=== PATIENT | female | born 1990 | race Caucasian/White ===

== ENCOUNTER 2024-12-02 19:00 | Emergency (ER) | payer OTHER, SELFPAY ==
[2024-12-02 19:14] VITALS: BP 153/90; PULSE 83; RESP 16; TEMP 36.9; O2SAT 99
--- NOTE | 2024-12-02 20:32 | ED_ITS ---
HPI - Extremity Problem General Chief complaint: Extremity Problem,Nontraumatic Stated complaint: pain in wrist Source: patient and RN notes reviewed Mode of arrival: ambulatory Limitations: no limitations History of Present Illness HPI Narrative: 34-year-old female presents Express Care complaining of pain to her right wrist. She states she has a history of ganglion cyst and has had them removed previously. Patient states a ganglion cyst has returned and now she has have worsening pain to her right wrist and hand. Patient for some numbness and tingling, patient is able to move her fingers and wrist. Patient cannot get into orthopedist on Saturday. Patient has been taking ibuprofen for pain with some relief. Patient rates her pain a 04/30. Related Data Home Medications Medication Instructions Recorded Confirmed Last Taken Type albuterol sulfate 90 mcg/actuation inhalation 12/02/24 Unknown History aerosol inhaler buspirone 15 mg tablet mg 12/02/24 Unknown History clonazepam 0.5 mg tablet mg 12/02/24 Unknown History dextroamphetamine-amphetamine ER PO 12/02/24 Unknown History 20 mg 24hr capsule,extend release lidocaine 5 % topical patch patch 12/02/24 Unknown History sertraline 100 mg tablet mg 12/02/24 Unknown History trazodone 100 mg tablet mg 12/02/24 Unknown History Allergies Allergy/AdvReac Type Severity Reaction Status Date / Time Sulfa (Sulfonamide Allergy Intermediate Rash Verified 12/02/24 19:29 Antibiotics) tramadol Allergy Intermediate Rash Verified 12/02/24 19:29 Review of Systems Review of Systems: CONSTITUTIONAL: Denies fever, chills, or sweats. EYES: Denies visual changes, redness, or discharge. ENT: Denies rhinorrhea, congestion, sore throat, or otalgia. CARDIOVASCULAR: Denies chest pain, palpitations, or edema. RESPIRATORY: Denies cough or dyspnea. GASTROINTESTINAL: Denies abdominal pain, nausea, vomiting, or diarrhea. GENITOURINARY: Denies dysuria or hematuria. SKIN: Denies rash, wound, or itching. MUSCULOSKELETAL: Denies back pain, joint pain, or myalgia. Positive for wrist pain and swelling NEUROLOGIC: Denies headache, numbness, or weakness. PSYCHIATRIC: Denies anxiety or depression. All other systems reviewed are negative, except as documented in HPI. [facility] Comments At the time of my signature, I reviewed and agree with the nursing past medical, surgical, social, and family history. There is no relevant family history pertinent to the patient complaint. Exam Narrative: GENERAL: This is a well-nourished, well-developed adult, in no apparent distress. They are non ill-appearing, nontoxic appearing. HEAD: normocephalic, atraumatic. EYES: Sclera clear/white. Vision is grossly intact. Conjunctiva normal. Extraocular movement intact. EARS: External ears normal Hearing grossly intact. NOSE: External nose normal THROAT: Mucous membranes moist NECK: Neck supple CARDIOVASCULAR: Regular rate and rhythm RESPIRATORY: Respiratory rate normal, respiratory effort nonlabored, no respiratory distress NEURO: awake, alert, and oriented to person, place and time. There were no obvious focal neurologic abnormalities. EXTREMITIES: Right wrist: No obvious deformity, injury, bruising, redness. Smooth and rubbery lesion to the lateral wrist located over the distal radius. Lesion measures approximately 1 cm by 1 cm. Lesion transilluminate and flesh- colored. Patient is able to pronate and supinate with discomfort. Patient is able to flex and extend her right wrist however there is intense pain. Patient is able to make a stop sign, thumbs-up sign, and okay sign, and a fist. No bony tenderness. Capillary refill less than 3 seconds. Radial pulse 2 +palpable. Numbness and tingling present. Patient able to feel me touch her feet tips of her fingers. Patient is able to wiggle her fingers. Neurovascular status intact distal to lesion. Radial nerve and ulnar nerve distribution intact. BACK: Nontender without deformity. Course Course Emergency Course: Portions of this record may have been created with voice recognition software Level of Care: Express Care Visit Vital Signs Vital signs: Vital Signs Temperature 98.4 F 12/02/24 19:14 Pulse Rate 83 12/02/24 19:14 Respiratory Rate 16 12/02/24 19:14 Blood Pressure 153/90 H 12/02/24 19:14 Pulse Oximetry 99 12/02/24 19:14 Temperature 98.4 F 12/02/24 19:14 Pulse Rate 83 12/02/24 19:14 Respiratory Rate 16 12/02/24 19:14 Blood Pressure 153/90 H 12/02/24 19:14 Pulse Oximetry 99 12/02/24 19:14 Reviewed MDM - Extremity (Nontraumatic) MDM Narrative Medical decision making narrative: Likely patient is having complications from her ganglion cyst. Patient has a follow-up with her ortho on Saturday to further evaluate and treat her. Patient neurovascular status is intact distal to the ganglion cyst. Will give patient course of prednisone, muscle relaxers to help with pain. Discussed physical exam findings. Advised supportive measures and signs/symptoms to go to the ER. Pt is appropriate for outpt treatment and f/u. Differential Diagnosis Differential diagnosis: Likely other (Ganglion cyst, lipoma, tumor) Critical Care Time Critical Care Time Critical Care Time: No Discharge Plan Discharge Clinical Impression: Ganglion cyst of dorsum of right wrist Patient Disposition: Home Condition: Stable Instructions: Ganglion Cyst (ED) Additional Instructions: Take the steroids as directed. He may take Tylenol ibuprofen as needed for p ain. You may apply ice to the affected area. Take Robaxin as directed for any muscle spasms. Drive or operate machinery while on muscle relaxers as this may make you drowsy. If your pain gets worse, unable to use your right hand, or any other concerning symptoms please go to the ER immediately. Follow-up with the orthopedist this following Saturday as scheduled. Patient Language: Armenian Prescriptions: New prednisone 20 mg tablet 40 mg PO DAILY 5 Days Qty: 10 0RF methocarbamol 750 mg tablet 750 mg PO TID 3 Days Qty: 9 0RF No Action clonazepam 0.5 mg tablet sertraline 100 mg tablet dextroamphetamine-amphetamine 20 mg capsule,extended release 24hr PO trazodone 100 mg tablet lidocaine 5 % adhesive patch,medicated albuterol sulfate 90 mcg/actuation HFA aerosol inhaler INHALATION buspirone 15 mg tablet Follow-up/Referrals: Jessie,MD Brandt [Primary Care Provider] - Stand Alone Forms: Work/School Release IP Time of Disposition: 19:34
== END 2024-12-02 19:44 | disposition home or self-care (01) ==
PROVIDERS: PCP Family Medicine
DX: M67.431 Ganglion, right wrist (principal); M47.812 Spondylosis without myelopathy or radiculopathy, cervical region; M47.814 Spondylosis without myelopathy or radiculopathy, thoracic region
CPT/HCPCS: 99203; G0463

== ENCOUNTER 2025-03-02 18:43 | Emergency (ER) | payer SELFPAY ==
[2025-03-02 18:50] VITALS: BP 142/72; PULSE 73; RESP 20; TEMP 36.9; O2SAT 100
--- NOTE | 2025-03-02 19:21 | ED.GENADULT ---
HPI - General Adult General Chief complaint: Dental/Oral Stated complaint: tooth pain Source: patient Mode of arrival: ambulatory Limitations: no limitations History of Present Illness HPI narrative: Patient presents for evaluation of left lower dental pain. Symptom onset last night. She gets pain is throbbing, 7/10 in severity. She tried taking Tylenol and ibuprofen for symptoms. She does not smoke. She states she went to the ER 3 weeks ago for similar symptoms and was given antibiotics. Her symptoms improved. She has an appointment with her dentist tomorrow. Related Data Home Medications ?Medication ?Instructions ?Recorded ?Confirmed ?Last Taken ?Type albuterol sulfate 90 mcg/actuation inhalation 12/02/24 Unknown History aerosol inhaler buspirone 15 mg tablet mg 12/02/24 Unknown History clonazepam 0.5 mg tablet mg 12/02/24 Unknown History dextroamphetamine-amphetamine ER PO 12/02/24 Unknown History 20 mg 24hr capsule,extend release sertraline 100 mg tablet mg 12/02/24 Unknown History trazodone 100 mg tablet mg 12/02/24 Unknown History Allergies Allergy/AdvReac Type Severity Reaction Status Date / Time Sulfa (Sulfonamide Allergy Intermediate Rash Verified 03/02/25 19:00 Antibiotics) tramadol Allergy Intermediate Rash Verified 03/02/25 19:00 Review of Systems Review of Systems: CONSTITUTIONAL: Denies fever, chills, or sweats. EYES: Denies visual changes, redness, or discharge. ENT: Reports left lower dental pain. Denies rhinorrhea, congestion, sore throat, or otalgia. CARDIOVASCULAR: Denies chest pain, palpitations, or edema. RESPIRATORY: Denies cough or dyspnea. GASTROINTESTINAL: Denies abdominal pain, nausea, vomiting, or diarrhea. GENITOURINARY: Denies dysuria or hematuria. SKIN: Denies rash or itching. MUSCULOSKELETAL: Denies back pain, joint pain, or myalgia. NEUROLOGIC: Denies headache, numbness, dizziness, or weakness. PSYCHIATRIC: Denies anxiety or depression. [facility], [facility] Past Medical History Medical History Depression Anxiety Surgical History Surgical History No pertinent past surgical history Family History Family History Mother Family history non-contributory Social History Social History Living arrangements: with family Gender identity (if verbalized by the patient): Female Spiritual care concerns: No Exam Narrative: GENERAL: Well-appearing, well-nourished, and in no acute distress. HEAD: Normocephalic, atraumatic. EYES: PERRLA and EOMI. ENT: Nares clear, no rhinorrhea or epistaxis. Mucous membranes moist. Oropharynx without tonsillar hypertrophy exudate or other lesions. There is erosion of the gumline surrounding tooth #18. There is no visible or palpable abscess. Bilateral TMs pearly moss nonbulging NECK: Supple. No adenopathy or masses. No carotid bruits or JVD CHEST: Clear to auscultation. No respiratory distress. No wheezes rales or rhonchi HEART: Regular rate and rhythm. No murmur heard. Normal peripheral pulses. ABDOMEN: Soft, nontender, nondistended, normal active bowel sounds. EXTREMITIES: Normal range of motion. No edema. SKIN: Warm, dry, no rash. NEURO: No focal deficits. Alert and oriented x3. PSYCH: Normal mood and affect. Course Course Emergency Course: This is a 34-year-old female who presented for evaluation of left lower dental pain. She will be discharged with meloxicam and penicillin. She should keep her appointment with her dentist tomorrow. She should go to the emergency department for worsening symptoms. Patient in agreement with plan of care. Level of Care: Express Care Visit Vital Signs Vital signs: Vital Signs Temperature 36.9 C 03/02/25 18:50 Pulse Rate 73 03/02/25 18:50 Respiratory Rate 20 03/02/25 18:50 Blood Pressure 142/72 H 03/02/25 18:50 Pulse Oximetry 100 03/02/25 18:50 Oxygen Delivery Room Air 03/02/25 18:50 Temperature 36.9 C 03/02/25 18:50 Pulse Rate 73 03/02/25 18:50 Respiratory Rate 20 03/02/25 18:50 Blood Pressure 142/72 H 03/02/25 18:50 Pulse Oximetry 100 03/02/25 18:50 Oxygen Delivery Room Air 03/02/25 18:50 Medical Decision Making Vital Signs Vital Signs: Vital Signs Temperature 36.9 C 03/02/25 18:50 Pulse Rate 73 03/02/25 18:50 Respiratory Rate 20 03/02/25 18:50 Blood Pressure 142/72 H 03/02/25 18:50 Pulse Oximetry 100 03/02/25 18:50 Oxygen Delivery Room Air 03/02/25 18:50 Temperature 36.9 C 03/02/25 18:50 Pulse Rate 73 03/02/25 18:50 Respiratory Rate 20 03/02/25 18:50 Blood Pressure 142/72 H 03/02/25 18:50 Pulse Oximetry 100 03/02/25 18:50 Oxygen Delivery Room Air 03/02/25 18:50 Discharge Plan Discharge Clinical Impression: Pain, dental Patient Disposition: Home Condition: Stable Instructions: Antibiotic Form, Toothache (ED) Additional Instructions: PLEASE KEEP APPOINTMENT WITH DENTIST TOMORROW DO NOT TAKE OTHER NSAIDS WHEN TAKING MELOXICAM Patient Language: Northern Irish Prescriptions: New penicillin V potassium 500 mg tablet 500 mg PO Q6H 10 Days Qty: 40 0RF meloxicam 15 mg tablet 15 mg PO DAILY PRN (Reason: pain) Qty: 10 0RF No Action clonazepam 0.5 mg tablet sertraline 100 mg tablet dextroamphetamine-amphetamine 20 mg capsule,extended release 24hr PO trazodone 100 mg tablet albuterol sulfate 90 mcg/actuation HFA aerosol inhaler INHALATION buspirone 15 mg tablet Follow-up/Referrals: Jessie,MD Brandt [Primary Care Provider] - Time of Disposition: 19:21
== END 2025-03-02 19:25 | disposition home or self-care (01) ==
PROVIDERS: Emergency Provider Nurse Practitioner; PCP Family Medicine
DX: K08.89 Other specified disorders of teeth and supporting structures (principal)
CPT/HCPCS: 99213; G0463

== ENCOUNTER 2025-03-03 10:12 | Emergency (ER) | payer SELFPAY ==
[2025-03-03 10:19] VITALS: BP 132/63; PULSE 71; RESP 20; TEMP 36.7; O2SAT 100
--- NOTE | 2025-03-03 10:21 | ED.ABDPAIN ---
HPI - Abdominal Pain General Chief Complaint: Abdominal Pain Stated Complaint: abdomen pain/vomiting Related Data Home Medications ?Medication ?Instructions ?Recorded ?Confirmed ?Last Taken ?Type albuterol sulfate 90 mcg/actuation inhalation 12/02/24 Unknown History aerosol inhaler buspirone 15 mg tablet mg 12/02/24 Unknown History clonazepam 0.5 mg tablet mg 12/02/24 Unknown History dextroamphetamine-amphetamine ER PO 12/02/24 Unknown History 20 mg 24hr capsule,extend release sertraline 100 mg tablet mg 12/02/24 Unknown History trazodone 100 mg tablet mg 12/02/24 Unknown History Allergies Allergy/AdvReac Type Severity Reaction Status Date / Time Sulfa (Sulfonamide Allergy Intermediate Rash Verified 03/02/25 19:00 Antibiotics) tramadol Allergy Intermediate Rash Verified 03/02/25 19:00 PMFSH Past Medical History Medical History Depression Anxiety Surgical History Surgical History No pertinent past surgical history Family History Family History Mother Family history non-contributory Social History Social History Living arrangements: with family Gender identity (if verbalized by the patient): Female Spiritual care concerns: No Course Vital Signs Vital signs: Vital Signs Temperature 98.0 F 03/03/25 10:19 Pulse Rate 71 03/03/25 10:19 Respiratory Rate 20 03/03/25 10:19 Blood Pressure 132/63 03/03/25 10:19 Pulse Oximetry 100 03/03/25 10:19 Oxygen Delivery Room Air 03/03/25 10:19 Temperature 98.0 F 03/03/25 10:19 Pulse Rate 71 03/03/25 10:19 Respiratory Rate 20 03/03/25 10:19 Blood Pressure 132/63 03/03/25 10:19 Pulse Oximetry 100 03/03/25 10:19 Oxygen Delivery Room Air 03/03/25 10:19 Discharge Plan Discharge Patient Language: Turkish Prescriptions: No Action clonazepam 0.5 mg tablet sertraline 100 mg tablet dextroamphetamine-amphetamine 20 mg capsule,extended release 24hr PO trazodone 100 mg tablet albuterol sulfate 90 mcg/actuation HFA aerosol inhaler INHALATION buspirone 15 mg tablet penicillin V potassium 500 mg tablet 500 mg PO Q6H 10 Days Qty: 40 0RF meloxicam 15 mg tablet 15 mg PO DAILY PRN (Reason: pain) Qty: 10 0RF Follow-up/Referrals: Jessie,MD Brandt [Primary Care Provider] -
--- NOTE | 2025-03-03 10:27 | ED_ITS ---
HPI - General Adult General Chief complaint: Abdominal Pain Stated complaint: abdomen pain/vomiting Time Seen by Provider: 03/03/25 10:30 Source: patient and RN notes reviewed Mode of arrival: ambulatory Limitations: no limitations History of Present Illness HPI narrative: 34-year-old female presents concern for nausea and vomiting. She reports in the middle of the night she had an episode of vomiting, abdominal pain and diarrhea. Reports she had another episode of vomiting and diarrhea this morning. She reports abdominal cramping. She was seen yesterday for a dental infection and prescribed penicillin and meloxicam, she took 1 dose of each of those last night before bed. She has not taken any additional medications. She took a course of amoxicillin 3 weeks ago for the same dental infection. She does not have a history of allergy to penicillin. She denies rash, itching, fever. She reports general malaise. She reports chills. Related Data Home Medications ?Medication ?Instructions ?Recorded ?Confirmed ?Last Taken ?Type albuterol sulfate 90 mcg/actuation inhalation 12/02/24 Unknown History aerosol inhaler buspirone 15 mg tablet mg 12/02/24 Unknown History clonazepam 0.5 mg tablet mg 12/02/24 Unknown History dextroamphetamine-amphetamine ER PO 12/02/24 Unknown History 20 mg 24hr capsule,extend release sertraline 100 mg tablet mg 12/02/24 Unknown History trazodone 100 mg tablet mg 12/02/24 Unknown History Allergies Allergy/AdvReac Type Severity Reaction Status Date / Time Sulfa (Sulfonamide Allergy Intermediate Rash Verified 03/03/25 10:23 Antibiotics) tramadol Allergy Intermediate Rash Verified 03/03/25 10:23 Review of Systems Review of Systems: CONSTITUTIONAL: Reports malaise, chills, sweats. Denies fever. ENT: Denies rhinorrhea, congestion, sinus pain, otalgia or sore throat. Reports dental pain CARDIOVASCULAR: Denies chest pain, palpitations, or edema. RESPIRATORY: Denies cough or dyspnea. GASTROINTESTINAL: Denies abdominal pain. Reports abdominal cramping, nausea, vomiting, diarrhea. Denies bloody, or mucous stools. GENITOURINARY: Denies dysuria or hematuria. MUSCULOSKELETAL: Denies myalgia. NEUROLOGIC: Denies headache. All systems reviewed & are unremarkable except as noted in HPI and below PMFSH Past Medical History Medical History Depression Anxiety Surgical History Surgical History No pertinent past surgical history Family History Family History Mother Family history non-contributory Social History Social History Living arrangements: with family Gender identity (if verbalized by the patient): Female Spiritual care concerns: No Comments At time of signature, agree with nursing past medical, surgical, social and family history. There is no relevant family history pertinent to the presenting complaint Exam Narrative: GENERAL: Well-appearing, well-nourished, and in no acute distress. HEAD: Normocephalic, atraumatic. EYES: PERRLA, sclera clear, and EOMI. No nystagmus. ENT: Nares clear. Mucous membranes moist. NECK: Supple. CHEST: No respiratory distress. Speaks in full sentences. HEART: Regular rate and rhythm. ABDOMEN: Soft, nontender, nondistended, normal active bowel sounds, no palpable masses. EXTREMITIES: Normal range of motion. No edema. SKIN: Warm, dry, no visible rash. NEURO: Alert and oriented x3. PSYCH: Normal mood and affect Course Course Emergency Course: Patient is aware of diagnosis, understands and agrees to treatment plan. Anticipatory guidance given. Patient agrees to follow-up as directed and is aware of reasons to seek care at the emergency department. Portions of this record may have been created with voice recognition software Level of Care: Express Care Visit Vital Signs Vital signs: Vital Signs Temperature 98.0 F 03/03/25 10:19 Pulse Rate 71 03/03/25 10:19 Respiratory Rate 20 03/03/25 10:19 Blood Pressure 132/63 03/03/25 10:19 Pulse Oximetry 100 03/03/25 10:19 Oxygen Delivery Room Air 03/03/25 10:19 Temperature 98.0 F 03/03/25 10:19 Pulse Rate 71 03/03/25 10:19 Respiratory Rate 20 03/03/25 10:19 Blood Pressure 132/63 03/03/25 10:19 Pulse Oximetry 100 03/03/25 10:19 Oxygen Delivery Room Air 03/03/25 10:19 Reviewed. Medical Decision Making MDM Narrative Medical decision making narrative: I evaluated [place] [facility] the [facility] care. History is obtained from patient who is an independent historian and physical exam was performed.? Available [facility] records were reviewed. ? Exam findings and relevant testing show no acute concerns or changes; patient is non-toxic appearing and is in no distress. ? Differential diagnosis and treatment plan were discussed with the patient. Patient agrees with discussion and after shared medical decision making agrees with plan of care. All questions were answered to the patient's satisfaction. Consider allergic reaction to medication, viral illness, food-borne illness. I will change patient's antibiotic, but I think likely this is viral or food-borne illness given his systemic symptoms. Patient was advised to follow-up with her primary doctor and dentist. Patient is appropriate for outpatient treatment and follow-up. Vital Signs Vital Signs: Vital Signs Temperature 98.0 F 03/03/25 10:19 Pulse Rate 71 03/03/25 10:19 Respiratory Rate 20 03/03/25 10:19 Blood Pressure 132/63 03/03/25 10:19 Pulse Oximetry 100 03/03/25 10:19 Oxygen Delivery Room Air 03/03/25 10:19 Temperature 98.0 F 03/03/25 10:19 Pulse Rate 71 03/03/25 10:19 Respiratory Rate 20 03/03/25 10:19 Blood Pressure 132/63 03/03/25 10:19 Pulse Oximetry 100 03/03/25 10:19 Oxygen Delivery Room Air 03/03/25 10:19 Critical Care Time Critical Care Time Critical Care Time: No Discharge Plan Discharge Clinical Impression: Nausea and vomiting Patient Disposition: Home Condition: Stable Instructions: Antibiotic Form, Acute Nausea and Vomiting (ED) Additional Instructions: Stop Penicillin and start clindamycin Take Zofran as directed for nausea vomiting Stay hydrated. Take small sips of fluid containing electrolytes frequently. You should go to the hospital if you experience return of persistent nausea and vomiting that does not resolve and does not allow you to tolerate any food or fluids, persistent fevers for greater than 2-3 more days, increasing abdominal pain that persists despite medications, persistent diarrhea, dizziness, syncope (fainting), or for any other concerns. Patient Language: Welsh Prescriptions: New clindamycin HCl 300 mg capsule 300 mg PO Q8H 7 Days Qty: 21 0RF ondansetron 4 mg tablet,disintegrating 4 mg PO Q8H PRN (Reason: nausea and vomiting) Qty: 10 0RF Discontinued penicillin V potassium 500 mg tablet 500 mg PO Q6H 10 Days Qty: 40 0RF No Action clonazepam 0.5 mg tablet sertraline 100 mg tablet dextroamphetamine-amphetamine 20 mg capsule,extended release 24hr PO trazodone 100 mg tablet albuterol sulfate 90 mcg/actuation HFA aerosol inhaler INHALATION buspirone 15 mg tablet meloxicam 15 mg tablet 15 mg PO DAILY PRN (Reason: pain) Qty: 10 0RF Follow-up/Referrals: Jessie,MD Brandt [Primary Care Provider] - Stand Alone Forms: Work/School Release IP Time of Disposition: 10:39
[2025-03-03] MEDS: ONDANSETRON HCL ODT 4 MG TABLET PO (10:45)
== END 2025-03-03 10:53 | disposition home or self-care (01) ==
PROVIDERS: Emergency Provider Nurse Practitioner; PCP Family Medicine
DX: R11.2 Nausea with vomiting, unspecified (principal); F41.9 Anxiety disorder, unspecified; F32.A Depression, unspecified
CPT/HCPCS: 99213; A9270; G0463

== ENCOUNTER 2025-03-25 20:00 | Emergency (ER) | payer OTHER, SELFPAY ==
--- OUTSIDE RECORDS SUMMARY | 2025-03-24 07:15 | XMS_ITS | Encounter Summary ---
Author Organization [facility] Healthcare Address [address] [place] [address] Care Team Providers Care Employment Director Name Role Phone Brandt Roman MD Primary Care Provider [phone] Praful Machado MD Unavailable [phone] Reason for Visit * Reason Comments Pain Encounter Details Date Type Department Care Team (Late st Contact Info) Description 03/24/2025 7:15 AM CDT Office Visit [facility] Medical Group Hand Surgery [address] [place] [address] [address] [place] [address] Quentin Neumann MD [address] [place] [address] [phone] Ganglion cyst of volar aspect of right wrist (Primary Dx) Social History Tobacco Use Types Packs/Day Years Used Date Smoking Tobacco: Former Cigarettes 1 15 0 07/22/2002 - 2017 Passive Smoke Exposure: Past Smokeless Tobacco: Never AUDIT-C Answer Date Recorded Q1: How often do you have a drink containing alc ohol? Monthly or less 06/17/2024 Q2: How many drinks containi ng alcohol do you have on a typical day when you are drinking? 1 or 2 06/17/2024 Q3: How often do you have si x or more drinks on one occasion? Less than monthly 06/17/2024 PHQ-2 Answer Date Recorded PHQ-2 Total Score (If total score is 3 or more points, staff should administer the PHQ-9) 6 10/01/2024 Hunger Vital Sign Answer Date Recorded Within the past 12 months, y ou worried that your food would run out before you got the money to buy more. Never true 06/02/20 24 Within the past 12 months, t he food you bought just didn't last and you didn't have money to get more. Never true 06/02/2024 PHQ-9 Answer Date Recorded PHQ-9 Total Score 21 10/01/2024 Personal Safety Answer Date Recorded Have you ever been in or are you currently in a harmful physical or emotional relationship or is someone making you feel afraid or unsafe? 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 This patient has verbally consented to recording this visit in order to utilize AI technology in generating this note. Patient ID: Jami Parker is a 34 y.o. female. Visit Date: 03/24/2025 Referring Provider: Brandt Roman MD Chief Complaint: Seen in consultation from Brandt Roman MD right wrist pain status post right volar wrist mass excision more than 2 years ago HPI: History of Present Illness Jami Parker is a 34 year old female who presents with a recurrent mass on her right wrist. The mass on her right wrist initially formed about a year after a previous surgery to remove a similar mass. It became significantly larger after playing basketball, leading to severe pain and numbness in her fingers. She visited the emergency room on March 02, 2025, after the mass ruptured, causing a large area of bruising, which has since resolved. Currently, she experiences no pain unless shemoves her wrist extensively after work. 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 She compensates by using her left arm more frequently, resulting in fatigue. She is concerned about her ability to perform work duties due to her employer's caution regarding lifting restrictions. Past Medical History: Diagnosis Date Anxiety Asthma Brain concussion 11/16/2004 Depression Hepatitis A Menstrual problem Neck pain 10/15/2023 PTSD (post-traumatic stress disorder) Seizures (HCC) last seizure 2019 Past Surgical History: Procedure Laterality Date SECTION COSMETIC SURGERY 10/04/2021 DENTAL SURGERY WRIST SURGERY Right 10/18/2022 rt volar wrist mass exc., radiocarpal ligament repair Allergies Allergen Reactions Benzonatate Fatigue, Headache, Joint pain, Muscle pain, Stomach upset and Sweating Sulfamethoxazole-Trimethoprim Stomach upset and Other (See comments) Tramadol Headache Physical Exam: Her gait is within normal limits. Her mood and affect are appropriate. She is well nourished. She is alert and oriented to time and place. Physical Exam MUSCULOSKELETAL: Previous incision at volar radial aspect of right wrist healed, no signs of infection. Right wrist normal range of motion, motor strength, and stability. There is minimal swelling ather right wrist today NEUROLOGICAL: Normal perfusion to right hand, light touch grossly intact. Xray / Imaging: Results RADIOLOGY Right wrist MRI: Mass formation DIAGNOSTIC Right wrist examination: Healed incision, no signs of infection, normal range of motion, motor strength, stability, and perfusion, light touch grossly intact 1. Ganglion cyst of volar aspect of right wrist PLAN: Assessment & Plan Recurrent right wrist ganglion cyst, post-rupture Recurrent ganglion cyst at the right wrist, post-rupture. The cyst ruptured during a basketball game, causing severe pain and numbness in the fingers. Swelling and bruising have resolved, with no current pain. A slight mass formation measuring 3x3 mm is present adjacent to the previous incision. The cyst may refill as the fluid has dispersed but the cyst wall remains. Previous incision is healed with no signs of infection. Normal range of motion, motor strength, and stability in the right wrist. Normal perfusion and intact light touch in the right hand. - Prescribe Medrol Dosepak for five days to address residual discomfort. - Provide a work note releasing her to full duty immediately. - Provide a better wrist brace to replace the worn-out one. - Advise to return if the cyst refills or symptoms recur. All questions were answered Procedures documented in this encounter Plan of Treatment Not on file documented as of this encounter Goals Goal Patient Goal Type Associated Problems Recent Progress Patient-Stated? 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 Minimize further functional decline 2. Maximize quality of life 3. Control pain Strategies: - Activity/exercise program recommendation - Conservative stepwise pain medicine strategy with multi-disciplinary approach - Recommend healthy lifestyle strategies and compensatory methods as needed documented as of this encounter Visit Diagnoses Diagnosis Ganglion cyst of volar aspect of right wrist- Primary documented in this encounter Care Teams Employment Director Relationship Specialty Start Date End Date Brandt Roman MD PCP - General Family Medicine 05/23/22 Praful Machado MD Consulting Physician Obstetrics and Gynecology 08/20/22 documented as of this encounter
--- OUTSIDE RECORDS SUMMARY | 2025-03-24 07:15 | XMS_ITS | Encounter Summary ---
Author Organization [facility] Healthcare Address [address] [place] [address] Care Team Providers Care Mail Truck Driver Name Role Phone Brandt Roman MD Primary Care Provider Praful Machado MD Unavailable [phone] Reason for Visit * Reason Comments Pain Encounter Details Date Type Department Care Team (Late st Contact Info) Description 03/24/2025 7:15 AM CDT Office Visit [facility] Medical Group Hand Surgery [address] [place] [address] [address] [place] [address] Quentin Neumann MD [address] [place] [address] [phone] Ganglion cyst of volar aspect of right [...] on file 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
--- OUTSIDE RECORDS SUMMARY | 2025-03-25 20:02 | XMS_ITS | Encounter Summary ---
Author Organization [facility] Healthcare Address [address] [place] [address] Care Team Providers Care Energy Conservation Engineer Name Role Phone Brandt Roman MD Primary Care Provider [phone] Praful Machado MD Unavailable [phone] Encounter Details Date Type Department Care Team (Late st Contact Info) Description 04/17/2024 Telephone [facility] Medical Group Family Medicine at [address] [place] [address] Brandt Roman MD [address] [place] [address] [address] [place] [address] Social History Tobacco Use Types Packs/Day Years Used Date Smoking Tobacco: Former Cigarettes 2017 Passive Smoke Exposure: Past Smokeless Tobacco: Never AUDIT-C Answer Date Recorded Q1: How often do you have a drink containing alcohol? Never 03/11/2024 Q2: How many drinks containi ng alcohol do you have on a typical day when you are drinking? Patient does not drink Q3: How often do you have si x or more drinks on one occasion? Never 03/11/2024 PHQ-2 Answer Date Recorded PHQ-2 Total Score (If total score is 3 or more points, staff should administer the PHQ-9) 0 08/09/2023 Hunger Vital Sign Answer Date Recorded Within the past 12 months, y ou worried that your food would run out before you got the money to buy more. Never true 01/07/20 24 Within the past 12 months, t he food you bought just didn't last and you didn't have money to get more. Never true 01/07/2024 Personal Safety Answer Date Recorded Have you ever been in or are you currently in a harmful physical or emotional relationship or is someone making you feel afraid or unsafe? 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 Author CCM Chronic Pain Care Plan Chronic Care Management No change(07/08 10:34 AM RADIO INSTALLER AUTOMOBILE) No Arabella Ferrera, [place] Note: Problem: Chronic Pain Goals: 1. Minimize further functional decline 2. Maximize quality of life 3. Control pain Strategies: - Activity/exercise program recommendation - Conservative stepwise pain medicine strategy with multi-disciplinary approach - Recommend healthy lifestyle strategies and compensatory methods as needed documented as of this encounter Visit Diagnoses Not on filedocumented in this encounter Care Teams Energy Conservation Engineer Relationship Specialty Start Date End Date Brandt Roman MD PCP - General Family Medicine 05/23/22 Praful Machado MD Consulting Physician Obstetrics and Gynecology 08/20/22 documented as of this encounter
--- OUTSIDE RECORDS SUMMARY | 2025-03-25 20:02 | XMS_ITS | Encounter Summary ---
Author Organization [facility] Healthcare Address [address] [place] [address] Care Team Providers Care Calender Tender Name Role Phone Brandt Romna MD Primary Care Provider Praful Machado MD Unavailable [phone] Encounter Details Date Type Department Care Team (Late st Contact Info) Description 12/31/2023 Telephone [facility] Center at the [facility] Advanced Medicine [address] [facility] [address] [place] [phone] Nima Gan, [address] [facility] [address] [place] [address] Social History Tobacco Use Types Packs/Day Years Used Date Smoking Tobacco: Former Cigarettes 1 2017 Passive Smoke Exposure: Past Smokeless Tobacco: Never AUDIT-C Answer Date Recorded Q1: How often do you have a drink containing alcohol? Never 12/25/2023 Q2: How many drinks containi ng alcohol do you have on a typical day when you are drinking? Patient does not drink Q3: How often do you have si x or more drinks on one occasion? Never 12/25/2023 PHQ-2 Answer Date Recorded PHQ-2 Total Score (If total score is 3 or more points, staff should administer the PHQ-9) 0 08/09/2023 Personal Safety Answer Date Recorded Have you ever been in or are you currently in a harmful physical or emotional relationship or is someone making you feel afraid or unsafe? 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 Gender Identity Female 05/06/2024 6:07 PM CDT Sexual Orientation Straight 05/06/2024 6: 07 PM CDT documented as of this encounter Plan of Treatment Not on file documented as of this encounter Visit Diagnoses Not on filedocumented in this encounter Additional Health Concerns Infection Onset Date Last Indicated Resolved Time COVID: Suspected 03/12/2024 03/12/2024 03/12/2024 8:47 AM CDT documented as of this encounter Care Teams Calender Tender Relationship Specialty Start Date End Date Brandt Roman MD PCP - General Family Medicine 05/23/22 Praful Machado MD Consulting Physician Obstetrics and Gynecology 08/20/22 documented as of this encounter
--- OUTSIDE RECORDS SUMMARY | 2025-03-25 20:02 | XMS_ITS | Clinical Summary ---
Author Organization [facility] Address [address] [place] [address] Care Team Providers Care Tobacco Prizer Name Role Phone Brandt Roman MD Primary Care Provider [phone] Praful Machado MD Unavailable [phone] Allergies Active Allergy Reactions Criticality Noted Date Comments Benzonatate Fatigue,Headache,Dinah nt pain,Muscle pain,Stomach upset,Sweating Medium 09/07/2023 Sulfamethoxazole-Trimethopri m Stomach upset,Other (See comments) Medium 05/18/2020 Tramadol Headache Medium 09/06/2023 Medications multivitamin capsule Take 1 capsule by mouth daily 90 capsule 3 10/30/19 23 Active naloxone (NARCAN) 4 mg/actuation spray,non-aerosol Administer 1 spray into affected nostril(s) as needed for opioid reversal or respiratory depression Call 911. Administer a single spray in one nostril. Repeat every 3 minutes as needed if no or minimal response. 2 each 05/09/20 24 Active traZODone (DESYREL) 100 mg tabletIndications :PTSD (post-traumatic stress disorder) Take 2 tablets (200 mg total) by mouth nightly 180 tablet 1 10/06/19 25 Active sertraline (ZOLOFT) 100 mg tabletIndications :Generalized anxiety disorder Take 2 tablets (200 mg total) by mouth daily 180 tablet 1 10/15/19 25 Active busPIRone (BUSPAR) 15 mg tabletIndications :Generalized anxiety disorder TAKE 1 TABLET BY MOUTH TWICE A DAY 180 tablet 1 12/18/19 25 Active baclofen (LIORESAL) 10 mg tabletIndications :Cervical neck pain with evidence of disc disease Take 0.5 tablets (5 mg total) by mouth 3 (three) times a day 45 tablet 2 01/19/20 25 025 Active lidocaine (LIDODERM) 5 %Indications:Pain Place 1 patch on the skin daily for 12 hours Use patch for 12 hours on, 12 hours off. Discard after each use 7 patch 02/23/20 25 Active albuterol HFA (Ventolin HFA) 90 mcg/actuation inhaler Inhale 2 puffs every 6 (six) hours as needed for wheezing 1 each 3 03/01/20 25 025 Active ketorolac (TORADOL) 10 mg tablet Take 1 tablet (10 mg total) by mouth every 6 (six) hours as needed for pain 20 tablet 03/02/20 25 Active dextroamphetamine -amphetamine XR (ADDERALL XR) 20 mg 24 hr capsuleIndication s:Attention deficit hyperactivity disorder (ADHD), predominantly inattentive type Take 1 capsule (20 mg total) by mouth every morning 30 capsule 03/18/20 25 025 Active clonazePAM (KlonoPIN) 0.5 mg tabletIndications :Generalized anxiety disorder Take 1 tablet (0.5 mg total) by mouth 2 (two) times a day as needed for anxiety 30 tablet 03/18/20 25 025 Active methylPREDNISolon e (Medrol, Blu,) 4 mg DosepackIndicatio ns:Ganglion cyst of volar aspect of right wrist Take as directed on package 1 packet 03/24/20 25 Active albuterol HFA (Ventolin HFA) 90 mcg/actuation inhaler Inhale 2 puffs every 6 (six) hours as needed for wheezing 1 each 3 01/19/20 25 025 Discontinu ed(Reorder ) clonazePAM (KlonoPIN) 0.5 mg tabletIndications :Generalized anxiety disorder Take 1 tablet (0.5 mg total) by mouth 2 (two) times a day as needed for anxiety 30 tablet 02/10/20 25 025 Discontinu ed(Reorder ) dextroamphetamine -amphetamine XR (ADDERALL XR) 20 mg 24 hr capsuleIndication s:Attention deficit hyperactivity disorder (ADHD), predominantly inattentive type Take 1 capsule (20 mg total) by mouth every morning 30 capsule 02/20/20 25 025 Discontinu ed(Reorder ) ketorolac (TORADOL) 10 mg tablet Take 1 tablet (10 mg total) by mouth every 6 (six) hours as needed for pain 30 tablet 02/23/20 25 025 Discontinu ed(Therapy completed) predniSONE (DELTASONE) 20 mg tablet Take 1 tablet (20 mg) by mouth 2 (two) times a day for 4 days 8 tablet 02/23/20 25 025 clonazePAM (KlonoPIN) 0.5 mg tabletIndications :Generalized anxiety disorder Take 1 tablet (0.5 mg total) by mouth 2 (two) times a day as needed for anxiety 30 tablet 03/01/20 25 025 Discontinu ed(Reorder ) Active Problems Problem Noted Date Diagnosed Date Attention deficit hyperactiv ity disorder (ADHD), predominantly inattentive type 06/17/2024 Overview (06/17/2024): Chronic. Uncontrolled. Start Adderall. Diarrhea 03/12/2024 Assessment & Plan (03/12/2024 9:34 AM CDT): VSS, mild epigastric TTP Possible gastroenteritis Discussed unable to order labs, imaging from [facility], if worsening abdominal pain, no improvement with below listed measures, unable to keep po intake down, uncontrolled fevers, go to the ER Rest Push fluids, zero sugar gaterode, soups Avoid spicy foods, caffeinated drinks, large fatty meals, very hot foods Avoid tight fitting bra Zofran for nausea or vomiting as needed Pepto bismol as needed for diarrhea x 5-7 days Pepcid prn , sit up right for 30-60 minutes Pcp for persisting symptoms Sacroiliitis 02/11/2024 Cervical radiculopathy 02/11/2024 Lumbar radiculopathy 02/11/2024 Chronic bilateral low back pain without sciatica 11/19/2023 Cervical neck pain with evidence of disc disease 10/23/2023 Cigarette nicotine dependence in remission 10/06 Psychophysiological insomnia 10/07/2023 WINNIE (obstructive sleep apnea) 10/07/2023 BMI 35.0-35.9,adult 10/07/2023 Mild persistent asthma without complication 09/19 Non-seasonal allergic rhinitis due to pollen Acute recurrent pansinusitis 09/19/2023 Mass of right wrist 10/11/2022 Overview (10/11/2022): Added automatically from request for surgery [id number] Ganglion cyst of volar aspect of right wrist Ganglion of right hand 08/29/2022 Chronic right lower quadrant pain 06/07/2022 Assessment & Plan (06/07/2022 11:58 AM TAX CREDIT LEASING CONSULTANT): Chronic, currently asymptomatic, states she was told in ER that she should be checked for endometriosis-referred to beam house inspector for further evaluation and management. Routine screening for STI (sexually transmitted infection) 06/07/2022 Assessment & Plan (06/07/2022 11:58 AM TAX CREDIT LEASING CONSULTANT): Ordered STI screening. Cervical cancer screening 06/07/2022 Assessment & Plan (06/07/2022 11:58 AM TAX CREDIT LEASING CONSULTANT): Pap obtained. Encounter for screening for human papillomavirus (HPV) 06/07/2022 Assessment & Plan (06/07/2022 11:58 AM TAX CREDIT LEASING CONSULTANT): Ordered screening for HPV. Encounter for well woman chaparro aviles with routine gynecological exam 06/07/2022 Assessment & Plan (06/07/2022 11:58 AM TAX CREDIT LEASING CONSULTANT): Encouraged monthly breast self exams. Discussed current guidelines that recommend pap smears for women 30-65 years old every 3 years or every 5 years depending on whether co-screening for HPV is done at time of pap and if results of pap are normal. Screening breast examination 06/07/2022 Assessment & Plan (06/07/2022 11:59 AM TAX CREDIT LEASING CONSULTANT): In office breast exam performed with no abnormal finding except for tenderness upon palpation to outer quadrants of bilateral breasts. Pain of both breasts 06/07/2022 Assessment & Plan (06/07/2022 11:59 AM TAX CREDIT LEASING CONSULTANT): Acute-referred for ultrasound bilateral breasts. Encounter for annual health examination 05/23/20 22 PTSD (post-traumatic stress disorder) 05/23/2022 Assessment & Plan (05/20/2023 1:09 PM CDT): Patient reiterated no suicidal thoughts at this time; take medication as directed; contact 911 and go to the ER if becomes suicidal; discussed side effects of medication with patient; encouraged healthy diet and exericise; encouraged patient to see a counselor. HPI: Condition is stable. Patient reports that she is been doing well on bupropion clonazepam and she feels like they have been helping her with her anxiety and PTSD. Patient presents for visit today with me via telehealth for med refills A&P: Discussed/ordered labs, encouraged healthy, low carbohydrate lifestyle and at least 150min/week of exercise, continue on buproprione 5mg tablet and clonazepam 0.5 mg 3 times daily Generalized anxiety disorder 05/23/2022 Assessment & Plan (02/07/2024 7:48 AM CDT): Acute Flare up on Chronic due to recent termination from job. Recommend discontinue Gabapentin. Need WINNIE titration and get on CPAP yeimi to improve sleep quality. Continue Trazodone. Cont> phentermine. Cont. Zoloft/Buspirone. Assessment & Plan (05/20/2023 1:10 PM CDT): Patient reiterated no suicidal thoughts at this time; take medication as directed; contact 911 and go to the ER if becomes suicidal; discussed side effects of medication with patient; encouraged healthy diet and exericise; encouraged patient to see a counselor. HPI: Condition is stable. Patient reports that she is been doing well on bupropion clonazepam and she feels like they have been helping her with her anxiety and PTSD. Patient presents for visit today with me via telehealth for med refills A&P: Discussed/ordered labs, encouraged healthy, low carbohydrate lifestyle and at least 150min/week of exercise, continue on buproprione 5mg tablet and clonazepam 0.5 mg 3 times daily Class 1 obesity due to exces s calories without serious comorbidity with body mass index (BMI) of 32.0 to 32.9 in adult 05/23/2022 Assessment & Plan (10/01/2024 8:51 AM CDT): Chronic. Uncontrolled. Goal: 130lb Recommend Nutritional every other Saturday Seminar. Recommended Medication :None Assessment & Plan (02/18/2024 2:31 PM CDT): Recommended aggressive Lifestyle modification and weight loss for improving overall weight related health conditions. Follow up in 1 or 3 months for continuing Lifestyle Medicine education and management visit. Recommend Lifestyle/Nutrition/Weight Loss Seminar on every other Tuesdays @ 5pm. Assessment & Plan (02/07/2024 7:52 AM CDT): Recommended aggressive Lifestyle modification and weight loss for improving overall weight related health conditions. Follow up in 1 or 3 months for continuing Lifestyle Medicine education and management visit. Recommend Lifestyle/Nutrition/Weight Loss Seminar on every other Tuesdays @ 5pm. Assessment & Plan (05/20/2023 1:05 PM CDT): HPI: Condition is not at/near goal goal BMI <30 A&P: Healthy, high-protein, lower carbohydrate, lower fat lifestyle and exercise for 150min/week recommended Recommend tracking everything you put in your mouth on an connie like Rapportive Lower carb substitutions: [employer] carries a zero net carb bread If you are looking for whole potatoes, like to use in soup or new potato shape/flavor, radishes are a great replacement If you are looking for mashed potatoes, riced cauliflower in the frozen bag section are a great replacement For pasta, try using zucchini noodles, lay them out on a cookie sheet and pat dry with a tea towel to try to remove as much moisture as possible. Heat your pasta sauce on the stove and put the noodles in for 30-45 seconds. If you leave them in much longer they will become mushy [place] and/or coconut flour instead of regular flour For pizza dough, try fathead pizza dough recipe online. To get a crispy crust, bake on one side for 8-12 min, then flip over and bake on the other side for 8-12 min, then put toppings on and bake until the cheese on top of pizza melts chaffles recipe online For ice cream, try the brand Enlightened To replace coffee creamer and make it low carb, use heavy creamer with sugar free Torani sweetener For chips, try Whisps or pork rinds For yogurt, try Two Good nepalese yogurt Use Pinterest for recipe ideas. Type in low carb... Hand Measurements: A fist or cupped hand = 1 cup 1 cup = 1 -2 servings of fruit juice 1 oz. of cold cereal 2 oz. of cooked cereal, rice or pasta 8 oz. of milk or yogurt A thumb = 1 oz. of cheese Consuming low-fat cheese helps you meet the required servings from the milk, yogurt and cheese group. 1 oz. of low-fat cheese counts as 8 oz. of milk or yogurt. Handful = 1-2 oz. of snack food Thumb tip = 1 teaspoon Keep high-fat foods, such as peanut butter and mayonnaise, at a minimum. One teaspoon is equal to the end of your thumb, from the knuckle up. Three teaspoons equals 1 tablespoon. Palm = 3 oz. of meat Choose lean poultry, fish, shellfish and beef. One palm size portion equals 3 oz. for an adult and 1 -2 oz. for a child under 5. 1 tennis ball or a fist= 1/2 cup of fruit and vegetables Healthy diets include a variety of colorful fruits and vegetables every day. The secret to serving size is in your hand. Snacking can add up. Remember, 1 handful equals 1 oz. of nuts and small candies. For chips and pretzels, 2 handfuls equals 1 oz. Because hand sizes vary, compare your fist size to an actual measuring cup. Assessment & Plan (05/23/2022 2:18 PM CDT): Recommended aggressive Lifestyle modification and weight loss for improving overall weight related health conditions. Follow up in 1 or 3 months for continuing Lifestyle Medicine education and management visit. Murmur, cardiac 05/23/2022 Tenosynovitis of wrist 05/21/2017 Pain in right arm 03/19/2017 Cannabis dependence 03/17/2017 Fibrocystic disease of breast 03/17/2017 Irregular periods 03/17/2017 Vitamin D deficiency 09/18/2016 Encounters Date Type Department Care Team Description 03/24/2025 7:15 AM CDT Office Visit [facility] Hand Surgery [address] [place] [phone] Quentin Neumann MD Ganglion cyst of volar aspect of right wrist (Primary Dx) 03/01/2025 10:52 PM CDT - 03/02/2025 12:45 AM CDT Emergency [address] [address] Pain, dental (Primary Dx); Ganglion cyst; Right wrist pain Discharge Disposition: Discharge to home or self care 02/22/2025 9:49 PM CDT - 02/22/2025 10:51 PM CDT Emergency [address] [address] Chronic neck pain (Primary Dx) Discharge Disposition: Discharge to home or self care 01/27/2025 8:11 PM CDT - 01/27/2025 8:50 PM CDT Emergency [address] [address] Sapna Rosas MD Pain, dental (Primary Dx) Discharge Disposition: Discharge to home or self care 01/20/2025 Telephone [facility] Family Medicine at [address] [phone] Brandt Roman MD Appointment Request 01/20/2025 Telephone [facility] Medical [facility] Family Medicine at [address] [place] [address] Brandt Roman MD Medical Question/Miscellaneou s 01/01/2025 Telephone [facility] Medicine at [address] [phone] Brandt Roman MD 1st No Show Letter sent to patient from Last 3 Months Immunizations Immunization Administration Dates Next Due HPV, Bivalent 02/10/2008 HPV, Quadrivalent 08/11/2008,04/13/2008 Hep B, Adolescent or Pediatric 11/08/1998,1997,04/26/1998 Influenza, Split 05/22/2011 Influenza, Trivalent, IM (MDV) 05/19/2012 Influenza, Unspecified 06/17/2024(Deferr ed: Patient decision),05/20/2023(Deferred: Patient decision),03/22/2023(Deferred: Patient decision),05/23/2022(Deferred: Patient Refused),03/22/2022(Deferred: Patient Refused) Td, adsorbed 08/09/2004 Surgical History Surgery Date Site/Laterality Comments SECTION DENTAL SURGERY WRIST SURGERY 10/18/2022 Right rt volar wrist mass exc., radiocarpal ligament repair COSMETIC SURGERY 10/04/2021 Medical History Medical History Date Comments PTSD (post-traumatic stress disorder) Anxiety Depression Asthma Hepatitis A Seizures (HCC) last seizure 202 0 Brain concussion 11/16/2004 Menstrual problem Neck pain 10/15/2023 Family History Medical History Relation Name Comments Depression Brother Arvind Velasquez Cancer Father Oli Velasquez Diabetes Father Oli Velasquez Heart attack Father Oli Velasquez Heart disease Father Oli Gonzalezntanisa Hypertension Father Oli Velasquez Stroke Mother Rossy Velasquez Stomach cancer Mother's Sister Breast cancer Neg Hx Colon cancer Neg Hx Ovarian cancer Neg Hx Uterine cancer Neg Hx Relation Name Status Comments Brother Arvind Velasquez Father Oli Velasquez Mother Rossy Velasquez Mother's Sister Social History Tobacco Use Types Packs/Day Years Used Date Smoking Tobacco: Former Cigarettes 1 15 0 07/22/2002 - 2017 Passive Smoke Exposure: Past Smokeless Tobacco: Never Tobacco Cessation:Counseling Given: Not Answered AUDIT-C Answer Date Recorded Q1: How often [...] on file Legal Sex Female 7:31 PM TAX CREDIT LEASING CONSULTANT Gender Identity Female 05/06/2024 6:07 PM CDT Sexual Orientation Straight 05/06/2024 6: 07 PM CDT Obstetrics History Para Term AB IAB SAB Ectopic Multiple Livin g Live Births 1 1 1 0 0 0 0 0 0 1 1 Date Outcome GA Total Labor Labor/2nd/3rd Weight Sex Type Anes PTL Yolanda A1 A5 Name Clin Term Last Filed Vital Signs Vital Sign [place] Time Taken Comments Blood Pressure 129/83 03/02/2025 12:20 AM CDT Pulse 60 03/02/2025 12:20 AM CDT Temperature 37 C (98.6 F) 03/01/2025 6:55 PM CDT Respiratory Rate 14 03/02/2025 12:20 AM CDT Oxygen Saturation 99% 03/02/2025 12:20 AM CDT Inhaled Oxygen Concentration - - Weight 77.8 kg (171 lb 8.3 oz) 03/01/2025 6:59 P M CDT Height 160 cm (5' 3) 01/27/2025 6:42 PM CDT Body Mass Index 30.38 01/27/2025 6:42 PM CDT Plan of Treatment Health Maintenance Due Date Last Done Comments Varicella Vaccines (1 of 2 - 13+ 2-dose series) 2001 DTaP/Tdap/Td Vaccine (1 - Tdap) 08/10/2004 5 Pneumococcal vaccine <65 (1 of 2 - PCV) 2007 Cervical Cancer Screening 06/07/2023 06/07/2022 Influenza Vaccine (#1) 2025 05/19/2012, 2010 Depression Screening 10/01/2025 10/01/2024, 10/01/2024, 08/09/2023, Additional history exists Regular Well Visit/Exam 18-64 10/01/2025, 09/19/2023, 06/07/2022, Additional history exists Hepatitis B Screening Completed 11/08/1998 , 05/31/1998, 04/26/1998 HPV Vaccines Completed 08/11/2008, 03/23, 02/10/2008 Hepatitis C Screening Completed 06/07/2022 Goals Goal Patient Goal Type Associated Problems Recent Progress Patient-Stated? Author CCM Chronic Pain Care Plan Chronic Care Management No change(07/08 10:34 AM TAX CREDIT LEASING CONSULTANT) No Arabella Ferrera, RN Note: Problem: Chronic Pain Goals: 1. Minimize further functional decline 2. Maximize quality of life 3. Control pain Strategies: - Activity/exercise program recommendation - Conservative stepwise pain medicine strategy with multi-disciplinary approach - Recommend healthy lifestyle strategies and compensatory methods as needed Procedures Procedure Name Priority Date/Time Associated Diagnosis Comments XR HAND RIGHT 3 OR MORE VIEWS ED 03/01/2025 7:24 PM CDT XR RADIUS ULNA RIGHT 2 VIEWS ED 03/01/2025 7:24 PM CDT HEPATITIS PANEL, ACUTE Routine 06/07/2022 12:17 PM TAX CREDIT LEASING CONSULTANT Routine screening for STI (sexually transmitted infection) PAP AND HIGH RISK HPV, REFLEX TO GENOTYPING Routine 06/07/2022 11:44 AM TAX CREDIT LEASING CONSULTANT Cervical cancer screening Encounter for screening for human papillomavirus (HPV) Encounter for well woman exam with routine gynecological exam from Last 3 Months or Most Recently Relevant to Health Maintenance Results * XR Hand Right 3 or More Views (03/01/2025 7:24 PM CDT) Anatomical Region Laterality Modality Upper Extremities, Hand Right Computed Radiography 03/01/2025 7:53 PM CDT Narrative 03/01/2025 7:55 PM CDT EXAM DESCRIPTION: XR HAND RIGHT 3 OR MORE VIEWS REASON FOR STUDY: Pain, Upper Extremity Injury or Trauma Pt came in Ed, ambulatory with c/I Right hand pain radiating to forearm accompanied by minimal swelling, numbness and tingling sensation with pain scale 5/10. Pt states I was playing basketball last night and I guess it was enough to make it hurt. Pt reports hx of surgery on right wrist due to mass. Noted bump on right wrist. Pt reports administering Ibuprofen and applying ice at 12noon with minimal relief. Pt able to wiggle fingers, palpable radial pulse. Pt also endorses Left Lower Molar Pain, states I have an abscess there and I was given antibiotics last week. Coincidentally, when my hand started hurting, my tooth started to hurt this morning too. Pt alert and oriented x 4 TECHNIQUE: 3 radiographic view(s) of the right hand . COMPARISON: 09/10/2022 FINDINGS: BONES/JOINTS: There is no acute fracture, malalignment or osseous abnormality. Deformity of the proximal 4th metacarpal is unchanged from previous. Negative ulnar variance is noted. SOFT TISSUES: Within normal limits. IMPRESSION: No acute osseous abnormality. THIS IS AN ELECTRONICALLY VERIFIED FINAL REPORT 03/01/2025 7:55 PM - Electronically signed by Darrius Reynolds M.D. T: Report ID: [id number] [place] Location: [place] [address] Procedure Note Darrius Reynolds MD - 03/01/2025 EXAM DESCRIPTION: XR HAND RIGHT 3 OR MORE VIEWS REASON FOR STUDY: Pain, Upper Extremity Injury or Trauma Pt came in Ed, ambulatory with c/I Right hand pain radiating to forearm accompanied by minimal swelling, numbness and tingling sensation with pain scale 5/10. Pt states I was playing basketball last night and I guess itwas enough to make it hurt. Pt reports hx of surgery on right wrist due to mass. Noted bump on right wrist. Pt reports administering Ibuprofen and applying ice at 12noon with minimal relief. Pt able to wiggle fingers, palpable radial pulse. Pt also endorses Left Lower Molar Pain, states I have an abscess there and I was given antibiotics last week.Coincidentally, when my hand started hurting, my tooth started to hurt this morning too.Pt alert and oriented x 4 TECHNIQUE: 3 radiographic view(s) of the right hand . COMPARISON: 09/10/2022 FINDINGS: BONES/JOINTS: There is no acute fracture, malalignment orosseous abnormality. Deformity of the proximal 4th metacarpal is unchanged from previous. Negative ulnar variance is noted. SOFT TISSUES: Within normal limits. IMPRESSION: No acute osseous abnormality. THIS IS AN ELECTRONICALLY VERIFIED FINAL REPORT 03/01/2025 7:55 PM - Electronically signed by Darrius Reynolds M.D. T: Report ID: [id number] [place] Location: [id number] [place] Noel Livingston MD IMG XR PROCEDURES F inal Result * XR Radius Ulna Right 2 Views (03/01/2025 7:24 PM CDT) Anatomical Region Laterality Modality Upper Extremities, Forearm Right Compu glen Radiography 03/01/2025 7:52 PM CDT Narrative 03/01/2025 7:53 PM CDT EXAM DESCRIPTION: XR RADIUS ULNA RIGHT 2 VIEWS REASON FOR STUDY: Pain, Upper Extremity Injury or Trauma Pt came in Ed, ambulatory with c/I Right hand pain radiating to forearm accompanied by minimal swelling, numbness and tingling sensation with pain scale 5/10. Pt states I was playing basketball last night and I guess it was enough to make it hurt. Pt reports hx of surgery on right wrist due to mass. Noted bump on right wrist. Pt reports administering Ibuprofen and applying ice at 12noon with minimal relief. Pt able to wiggle fingers, palpable radial pulse. Pt also endorses Left Lower Molar Pain, states I have an abscess there and I was given antibiotics last week. Coincidentally, when my hand started hurting, my tooth started to hurt this morning too. Pt alert and oriented x 4 TECHNIQUE: 2 radiographic view(s) of the right forearm . COMPARISON: 10/05/2022 FINDINGS: BONES/JOINTS: There is no acute fracture, malalignment or osseous abnormality. Negative ulnar variance is noted. Normal. SOFT TISSUES: Within normal limits. IMPRESSION: No acute osseous abnormality. THIS IS AN ELECTRONICALLY VERIFIED FINAL REPORT 03/01/2025 7:53 PM - Electronically signed by Darrius Reynolds M.D. [facility] T: Report ID: [id number] [place] Location: [id number] Procedure Note Darrius Reynolds MD - 03/01/2025 EXAM DESCRIPTION: XR RADIUS ULNA RIGHT 2 VIEWS REASON FOR STUDY: Pain, Upper Extremity Injury or Trauma Pt came in Ed, ambulatory with c/I Right hand pain radiating to forearm accompanied by minimal swelling, numbness and tingling sensation with pain scale 5/10. Pt states I was playing basketball last night and I guess itwas enough to make it hurt. Pt reports hx of surgery on right wrist due to mass. Noted bump on right wrist. Pt reports administering Ibuprofen and applying ice at 12noon with minimal relief. Pt able to wiggle fingers, palpable radial pulse. Pt also endorses Left Lower Molar Pain, states I have an abscess there and I was given antibiotics last week.Coincidentally, when my hand started hurting, my tooth started to hurt this morning too.Pt alert and oriented x 4 TECHNIQUE: 2 radiographic view(s) of the right forearm . COMPARISON: 10/05/2022 FINDINGS: BONES/JOINTS: There is no acute fracture, malalignment orosseous abnormality. Negative ulnar variance is noted. Normal. SOFT TISSUES: Within normal limits. IMPRESSION: No acute osseous abnormality. THIS IS AN ELECTRONICALLY VERIFIED FINAL REPORT 03/01/2025 7:53 PM - Electronically signed by Darrius [place] T: Report ID: [id number] [place] Location: [id number] Noel Livingston MD IM XR PROCEDURES F inal Result * Hepatitis panel, acute (06/07/2022 12:17 PM TAX CREDIT LEASING CONSULTANT) Hep A IgM Nonreactive Nonreactive [facility] Comment: Interpretive Data: If Hep A IgM Ab is reported as Equivocal, a new sample should be drawn in two weeks for testing. Current interpretive data was last revised on 19. Hep B core IgM Nonreactive Nonreactive [facility] Comment: Interpretive Data If HepB Core IgM Ab is reported as Equivocal, a new sample should be drawn in two weeks for testing. Current interpretive data was last revised on 19. Hep C Ab Nonreactive Nonreactive [facility] Comment: Interpretive Data Nonreactive: Antibodies to HCV not detected. Does NOT exclude the possibility of recent exposure to HCV. Equivocal: Equivocal for HCV antibodies. Supplemental molecular testing will be automatically performed to determine infection status in accordance with current CDC screening recommendations. Reactive: Positive for HCV antibodies. This may represent current or past HCV infection. Supplemental molecular testing will be automatically performed to determine current infection status in accordance with current CDC screening recommendations. Interpretive data was last revised on 2019. HepBsAg Nonreactive Nonreactive [facility] Blood 06/07/2022 12:1 7 PM TAX CREDIT LEASING CONSULTANT 06/07/2022 2:50 PM TAX CREDIT LEASING CONSULTANT us Serene Fitch NP LAB MICROBIOLOGY - GENERAL ORDER FREDRICK Final Result [facility] [address] [facility] Department [place] [address] * Pap and High Risk HPV, reflex to Genotyping (06/07/2022 11:44 AM TAX CREDIT LEASING CONSULTANT) Vaginal (Pap test) 06/07/2022 11:44 AM TAX CREDIT LEASING CONSULTANT 06/07/2022 11:44 AM TAX CREDIT LEASING CONSULTANT Narrative PATHOLOGY [facility] - 06/12/2022 11:58 AM TAX CREDIT LEASING CONSULTANT [facility] Department of Pathology [address] [place] [id number] Final Report with Addendum Note to Patients: This report may contain a detailed description of human tissue sent by a health care provider to the laboratory for pathologic evaluation. The content of this report is essential for diagnosis and may provide important critical findings. This information may be unfamiliar to patients to review without a medical professional present. It is advised that the patient review this report in the presence of a health care provider who can answer questions and explain the details. Patient Name: JAMI VELASQUEZ [address]: [address] [place] [address] Gender: F : 1990 (Age: 31) Service: Location: Hospital #: [id number] Patient Type: E SPECIMEN Taken: 06/07/2022 Received: 06/07/2022 Accessioned:: 06/08/2022 Reported: 06/12/2022 [facility] Diagnosis: Source of Specimen: SCREENING THIN PREP IMAGED PAP w/ HPV Specimen Adequacy: - Satisfactory for evaluation; endocervical/transformation zone component present General Category: - Negative for intraepithelial lesion or malignancy NAE Romero(ASCP) Report Electronically Reviewed and Signed Out By NAE Romero(ASCP) 06/12/2022 11:58:43Addenda: HPV Test Interpretation NEGATIVE for types 16, 18, 31, 33, 35, 39, 45, 51, 52, 56, 58, 59, 66 and 68. Test performed utilizing Gen-Probe Aptima assay. NAE Rojsa(ASCP)Report Electronically Reviewed and Signed Out By LUPE RojasASCP) 06/08/2022 17:34:06 Specimen(s) Received: A: SCREENING THIN PREP IMAGED PAP w/ HPV Clinical History: Last Menstrual Period: 05/29 Menstrual History: Regular Cycles The Pap test is a screening test used to aid in the detection of cervical cancer and its precursors. It should not be the sole means by which malignant and premalignant lesions are diagnosed. Both false negative and false positive results may occur. It also has poor sensitivity for the detection of endometrial lesions and should not be used to evaluate suspected endometrial abnormalities. For these reasons it is most important to obtain Pap tests at regular intervals. The performance characteristics of some immunohistochemical stains, fluorescence in-situ hybridization tests and immunophenotyping by flow cytometry cited in this report (if any) were determined by the Surgical Pathology Department at [facility] as part of an ongoing quality assurance advisor program and in compliance with federally mandated regulations drawn from the Clinical Laboratory Improvement Act of 1988 (CLIA '88). Some of these tests rely on the use of analyte specific reagents and are subject to specific labeling requirements by the US Food and Drug Administration. Such diagnostic tests may only be performed in a facility that is certified by the Department of Health and Human Services as a high complexity laboratory under CLIA '88. The FDA has determined that such clearance or approval is not necessary. This test is used for clinical purposes. It should not be regarded as investigational or for research. Nevertheless, federal rules concerning the medical use of analyte specific reagents require that the following disclaimer be attached to the report: This test was developed and its performance characteristics determined by the Surgical Pathology Department [facility]. It has not been cleared or approved by the U. S. Food and Drug Administration. Serene Fitch NP LAB CYTOLOGY ORDERABLES Final Re sult PATHOLOGY [facility] from Last 3 Months or Most Recently Relevant to Health Maintenance Insurance [facility] Care Teams Tobacco Prizer Relationship Specialty Start Date End Date Brandt Roman MD PCP - General Family Medicine 05/23/22 Praful Machado MD Consulting Physician Obstetrics and Gynecology 08/20/22
--- OUTSIDE RECORDS SUMMARY | 2025-03-25 20:02 | XMS_ITS | Clinical Summary ---
Author Organization [facility] Address [address] [place] [address] Care Team Providers Care Child Development Specialist Name Role Phone Brandt Roman MD Primary Care Provider [phone] Allergies Active Allergy Reactions Criticality Noted Date Comments Sulfamethoxazole-Trimethopri m GI Upset 05/18/2020 Benzonatate Fatigue,GI Upset,Headache,Joint Pain,Myalgias,Other (see comment) Medium 09/07/2023 Tramadol Headache Medium 09/06/2023 Medications clonazePAM 0.5 MG tablet 1 Active traZODone 50 MG tablet Take 1 tablet (50 mg total) by mouth nightly at bedtime. Active sertraline 50 MG tablet Take 1 tablet (50 mg total) by mouth daily. Active busPIRone (BUSPAR) 5 MG tablet Take 1 tablet (5 mg total) by mouth 3 (three) times daily. 4 Active albuterol sulfate HFA 108 (90 Base) MCG/ACT inhaler Inhale 2 puffs into the lungs every 6 (six) hours as needed for Wheezing. 4 Active dextromethorphan-gu aiFENesin ER (MUCINEX DM) 30-600 MG TABLET SR 12 HR 12 hr tablet Take 1 tablet by mouth every 12 (twelve) hours as needed. 28 tablet 5 Active ondansetron (ZOFRAN-ODT) 4 MG disintegrating tablet 1 tablet every 4-6 hours as needed for nausea/vomit ing 20 tablet 5 Active Active Problems No known active problems Family History Medical History Relation Comments Heart Disease Father Stroke Mother Relation Status Comments Father Mother Social History Tobacco Use Types Packs/Day Years Used Date Smoking Tobacco: Former Cigarettes Passive Smoke Exposure: Past Smokeless Tobacco: Never Tobacco Cessation:Counseling Given: Not Answered Alcohol Use Standard Drinks/Week Comments Never 0 (1 standard drink = 0.6 oz pur e alcohol) AUDIT-C Answer Date Recorded Q1: How often do you have a drink containing alc ohol? Never 05/18/2020 Average Number of Drinks Not on file 020 Frequency of Binge Drinking Not on file 04/22 Comments No Sex and Gender Information Value Date Recorded Sex Assigned at Female 08/11/2024 10:42 AM EAR SPECIALIST Legal Sex Female 10:29 PM CDT Gender Identity Not on file Sexual Orientation Not on file Last Filed Vital Signs Vital Sign [place] Time Taken Comments Blood Pressure 119/74 08/11/2024 11:02 AM EAR SPECIALIST Pulse 82 08/11/2024 11:02 AM EAR SPECIALIST Temperature 36.5 C (97.7 F) 08/11/2024 11:02 AM EAR SPECIALIST Respiratory Rate 18 08/11/2024 11:02 AM EAR SPECIALIST Oxygen Saturation 100% 08/11/2024 11:02 AM EAR SPECIALIST Inhaled Oxygen Concentration - - Weight 81.2 kg (179 lb) 08/11/2024 11:02 AM EAR SPECIALIST Height 160 cm (5' 3) 08/11/2024 11:02 AM EAR SPECIALIST Body Mass Index 31.71 08/11/2024 11:02 AM EAR SPECIALIST Plan of Treatment Health Maintenance Due Date Last Done Comments Annual Physical 1991 DTaP, Tdap and Td Vaccines ( 2 - Tdap) 08/10/2004 08/09/2004 Hepatitis C 2006 Cervical Cancer Screening Pa p with HPV Testing (Age 30 to 64) Every 5 Years 2018 COVID-19 Vaccine (2023-2 5 season) 2024 Cervical Cancer Screening Pa p Smear (Age 30 to 64) Every 3 Years 06/07/2025 06/07/2022 Cervical Cancer Screening [facility] HPV 06/07/2025 Hepatitis B Vaccines Completed 11/08/1998, 05/31/1998, 04/26/1998 HPV Vaccines Completed 08/11/2008, 04/13/2008, 02/10/2008 Meningococcal B Vaccine Aged Out No l onger eligible based on patient's age to complete this topic Meningococcal Vaccine Aged Out No harley melanie eligible based on patient's age to complete this topic Pneumococcal Vaccine: Pediatrics (0 to 5 Years) and At-Risk Patients (6 to 49 Years) Aged Out No longer eligible b ased on patient's age to complete this topic RSV Immunizations Under 20 Months Aged Out No longer eligible b ased on patient's age to complete this topic Insurance [place] Care Teams Child Development Specialist Relationship Specialty Start Date End Date Brandt Roman MD [address] [place] [address] [address] [place] [address] PCP - General FAMILY PRACTICE 01/13/24
--- OUTSIDE RECORDS SUMMARY | 2025-03-25 20:02 | XMS_ITS | Encounter Summary ---
Author Organization [facility] Healthcare Address [address] [place] [address] Care Team Providers Care Leadership Coach Name Role Phone Brandt Roman MD Primary Care Provider [phone] Praful Machado MD Unavailable [phone] Encounter Details Date Type Department Care Team (Late st Contact Info) Description 05/08/2024 Telephone [facility] Medical [facility] Family Medicine at [address] [place] [address] Brandt Roman MD [address] [place] [address] [address] [place] [address] Social History Tobacco Use Types Packs/Day Years [...] on file Legal Sex Female 7:31 PM GRINDER 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 Author CCM Chronic Pain Care Plan Chronic Care Management No change(07/08 10:34 AM GRINDER SET UP OPERATOR CENTERLESS) No Arabella Ferrera, [place] Note: Problem: Chronic Pain Goals: 1. Minimize further functional decline 2. Maximize quality of life 3. Control pain Strategies: - Activity/exercise program recommendation - Conservative stepwise pain medicine strategy with multi-disciplinary approach - Recommend healthy lifestyle strategies and compensatory methods as needed documented as of this encounter Visit Diagnoses Not on filedocumented in this encounter Care Teams Leadership Coach Relationship Specialty Start Date End Date Brandt Roman MD PCP - General Family Medicine 05/23/22 Praful Machado MD Consulting Physician Obstetrics and Gynecology 08/20/22 documented as of this encounter
--- OUTSIDE RECORDS SUMMARY | 2025-03-25 20:02 | XMS_ITS | Encounter Summary ---
Author Organization [facility] Healthcare Address [address] [place] [address] Care Team Providers Care Absorption Operator Name Role Phone Brandt Roman MD Primary Care Provider [phone] Praful Machado MD Unavailable [phone] Reason for Visit * Reason Onset Date Comments PMC Preprocedure 07/06/2024 Encounter Details Date Type Department Care Team (Late st Contact Info) Description 07/06/2024 Telephone [facility] the [place] [facility] [address] [facility] [address] [place] [address] Chiquita Christensen MD [address] [place] [address] [facility] Preprocedure Social History Tobacco Use Types Packs/Day Years [...] money to get more. Never true 06/02/2024 Personal Safety Answer Date Recorded Have you ever been in or are you currently in a harmful physical or emotional relationship or is someone making you feel afraid or unsafe? Denies 04/18/2024 Comments No Sex and Gender Information Value Date Recorded Sex Assigned at Not on file Legal Sex Female 7:31 PM SUPERVISOR [employer] Gender Identity Female 05/06/2024 6:07 PM CDT Sexual Orientation Straight 05/06/2024 6: 07 PM CDT documented as of this encounter Plan of Treatment Not on file documented as of this encounter Goals Goal Patient Goal Type Associated Problems Recent Progress Patient-Stated? Author CCM Chronic Pain Care Plan Chronic Care Management No change(07/08 10:34 AM SUPERVISOR [employer]) No Arabella Ferrera, [place] Note: Problem: Chronic Pain Goals: 1. Minimize further functional decline 2. Maximize quality of life 3. Control pain Strategies: - Activity/exercise program recommendation - Conservative stepwise pain medicine strategy with multi-disciplinary approach - Recommend healthy lifestyle strategies and compensatory methods as needed documented as of this encounter Visit Diagnoses Not on filedocumented in this encounter Care Teams Absorption Operator Relationship Specialty Start Date End Date Brandt Roman MD PCP - General Family Medicine 05/23/22 Praful Machado MD Consulting Physician Obstetrics and Gynecology 08/20/22 documented as of this encounter
[2025-03-25 20:41] VITALS: BP 127/66; PULSE 66; RESP 17; TEMP 36.6; O2SAT 100
--- NOTE | 2025-03-25 21:46 | PC.NURSE ---
pt is ambulatory to triage desk and asks for wait time. This RN states we do not give ou wait times and in the process of discharging and cleaning rooms and get people back as soon as we can. Pt states she has to put her kid to bed and does not want to be here all night so she will just come back in morning. Pt advised to stay but it is up to pt. Pt left without being seen by provider. pt ambulatory to ED eit with no difficulties.
--- OUTSIDE RECORDS SUMMARY | 2025-03-25 21:57 | XMS_ITS | Encounter Summary ---
Author Organization [facility] Healthcare Address [address] [place] [address] Care Team Providers Care Referral Agent Name Role Phone Brandt Roman MD Primary Care Provider [phone] Praful Machado MD Unavailable [phone] Encounter Details Date Type Department Care Team (Late st Contact Info) Description 04/17/2024 Telephone [facility] Medical Group Family Medicine at [address] [place] [address] Brandt Roman MD [address] [place] [address] [address] [place] [address] Social History Tobacco Use Types Packs/Day Years [...] on file Legal Sex Female 7:31 PM COLLATOR HAND Gender Identity Female 05/06/2024 6:07 PM CDT Sexual Orientation Straight 05/06/2024 6: 07 PM CDT documented as of this encounter Plan of Treatment Not on file documented as of this encounter Goals Goal Patient Goal Type Associated Problems Recent Progress Patient-Stated? Author CCM Chronic Pain Care Plan Chronic Care Management No change(07/08 10:34 AM COLLATOR HAND) No Arabella Ferrera, [place] Note: Problem: Chronic Pain Goals: 1. Minimize further functional decline 2. Maximize quality of life 3. Control pain Strategies: - Activity/exercise program recommendation - Conservative stepwise pain medicine strategy with multi-disciplinary approach - Recommend healthy lifestyle strategies and compensatory methods as needed documented as of this encounter Visit Diagnoses Not on filedocumented in this encounter Care Teams Referral Agent Relationship Specialty Start Date End Date Brandt Roman MD PCP - General Family Medicine 05/23/22 Praful Machado MD Consulting Physician Obstetrics and Gynecology 08/20/22 documented as of this encounter
--- OUTSIDE RECORDS SUMMARY | 2025-03-25 21:57 | XMS_ITS | Encounter Summary ---
Author Organization [facility] Healthcare Address [address] [place] [address] Care Team Providers Care Dairy Chemist Name Role Phone Brandt Roman MD Primary Care Provider [phone] Praful Machado MD Unavailable [phone] Reason for Visit * Reason Onset Date Comments PMC Preprocedure 07/06/2024 Encounter Details Date Type Department Care Team (Late st Contact Info) Description 07/06/2024 Telephone [facility] the [place] [facility] [address] [facility] [address] [place] [address] Chiquita Christensen MD [address] [place] [address] [facility] Preprocedure Social History Tobacco Use Types [...] on file Legal 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 Author CCM Chronic Pain Care Plan Chronic Care Management No change(07/08 10:34 AM WAREHOUSE FOREMAN) No Arabella Ferrera, [place] Note: Problem: Chronic Pain Goals: 1. Minimize further functional decline 2. Maximize quality of life 3. Control pain Strategies: - Activity/exercise program recommendation - Conservative stepwise pain medicine strategy with multi-disciplinary approach - Recommend healthy lifestyle strategies and compensatory methods as needed documented as of this encounter Visit Diagnoses Not on filedocumented in this encounter Care Teams Dairy Chemist Relationship Specialty Start Date End Date Brandt Roman MD PCP - General Family Medicine 05/23/22 Praful Machado MD Consulting Physician Obstetrics and Gynecology 08/20/22 documented as of this encounter
--- OUTSIDE RECORDS SUMMARY | 2025-03-25 21:57 | XMS_ITS | Encounter Summary ---
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 Author CCM Chronic Pain Care Plan Chronic Care Management No change(07/08 10:34 AM SORTER LAUNDRY ARTICLES) No Arabella Ferrera, [place] Note: Problem: Chronic Pain Goals: 1. Minimize further functional decline 2. Maximize quality of life 3. Control pain Strategies: - Activity/exercise program recommendation - Conservative stepwise pain medicine strategy with multi-disciplinary approach - Recommend healthy lifestyle strategies and compensatory methods as needed documented as of this encounter Visit Diagnoses Not on filedocumented in this encounter Care Teams Pattern Designer Relationship Specialty Start Date End Date Brandt Roman MD PCP - General Family Medicine 05/23/22 Praful Machado MD Consulting Physician Obstetrics and Gynecology 08/20/22 documented as of this encounter
--- OUTSIDE RECORDS SUMMARY | 2025-03-25 21:57 | XMS_ITS | Clinical Summary ---
Author Organization [facility] Address [address] [place] [address] Care Team Providers Care Materials Technician Name Role Phone Brandt Roman MD Primary Care Provider [phone] Allergies Active Allergy Reactions Criticality Noted Date [...] Sex Assigned at Female 08/11/2024 10:42 AM BEHAVIOR SUPPORT SPECIALIST Legal Sex Female 10:29 PM CDT Gender Identity Not on file Sexual Orientation Not on file Last Filed Vital Signs Vital Sign Reading Time Taken Comments Blood Pressure 119/74 08/11/2024 11:02 AM BEHAVIOR SUPPORT SPECIALIST Pulse 82 08/11/2024 11:02 AM BEHAVIOR SUPPORT SPECIALIST Temperature 36.5 C (97.7 F) 08/11/2024 11:02 AM BEHAVIOR SUPPORT SPECIALIST Respiratory Rate 18 08/11/2024 11:02 AM BEHAVIOR SUPPORT SPECIALIST Oxygen Saturation 100% 08/11/2024 11:02 AM BEHAVIOR SUPPORT SPECIALIST Inhaled Oxygen Concentration - - Weight 81.2 kg (179 lb) 08/11/2024 11:02 AM BEHAVIOR SUPPORT SPECIALIST Height 160 cm (5' 3) 08/11/2024 11:02 AM BEHAVIOR SUPPORT SPECIALIST Body Mass Index 31.71 08/11/2024 11:02 AM BEHAVIOR SUPPORT SPECIALIST Plan of Treatment Health Maintenance Due [...] 3 Years 06/07/2025 06/07/2022 Cervical Cancer Screening [facility] HPV 06/07/2025 Hepatitis B Vaccines Completed 11/08/1998, [...] patient's age to complete this topic Insurance [place] Care Teams Materials Technician Relationship Specialty Start Date End Date Brandt Roman MD [address] [place] [address] [address] [place] [address] PCP - General FAMILY PRACTICE 01/13/24
--- OUTSIDE RECORDS SUMMARY | 2025-03-25 21:57 | XMS_ITS | Clinical Summary ---
Author Organization [facility] Address [address] [place] [address] Care Team Providers Care Product Controller Name Role Phone Brandt Roman MD Primary Care Provider [phone] Praful Machado MD Unavailable [phone] Allergies Active Allergy Reactions Criticality Noted Date [...] (10/11/2022): Added automatically from request for surgery [id number] Ganglion cyst of volar aspect of right wrist Ganglion of right hand 08/29/2022 Chronic right lower quadrant pain 06/07/2022 Assessment & Plan (06/07/2022 11:58 AM ASSOCIATE MEDIA DIRECTOR): Chronic, currently asymptomatic, states she was told in ER that she should be checked for endometriosis-referred to rn chemical dependency for further evaluation and management. Routine screening for STI (sexually transmitted infection) 06/07/2022 Assessment & Plan (06/07/2022 11:58 AM ASSOCIATE MEDIA DIRECTOR): Ordered STI screening. Cervical cancer screening 06/07/2022 Assessment & Plan (06/07/2022 11:58 AM ASSOCIATE MEDIA DIRECTOR): Pap obtained. Encounter for screening for human papillomavirus (HPV) 06/07/2022 Assessment & Plan (06/07/2022 11:58 AM ASSOCIATE MEDIA DIRECTOR): Ordered screening for HPV. Encounter for well woman chaparro aviles with routine gynecological exam 06/07/2022 Assessment & Plan (06/07/2022 11:58 AM ASSOCIATE MEDIA DIRECTOR): Encouraged monthly breast self exams. Discussed current guidelines that recommend pap smears for women 30-65 years old every 3 years or every 5 years depending on whether co-screening for HPV is done at time of pap and if results of pap are normal. Screening breast examination 06/07/2022 Assessment & Plan (06/07/2022 11:59 AM ASSOCIATE MEDIA DIRECTOR): In office breast exam performed with no abnormal finding except for tenderness upon palpation to outer quadrants of bilateral breasts. Pain of both breasts 06/07/2022 Assessment & Plan (06/07/2022 11:59 AM ASSOCIATE MEDIA DIRECTOR): Acute-referred for ultrasound bilateral breasts. Encounter for [...] in your mouth on an connie like [employer] Lower carb substitutions: [employer]i carries a zero [...] in much longer they will become mushy [place] and/or coconut flour instead of regular flour [...] pork rinds For yogurt, try Two Good macedonian yogurt Use Pinterest for recipe ideas. Type [...] Description 03/24/2025 7:15 AM CDT Office Visit [facility] Medical Group Hand Surgery [address] [place] [phone] Quentin Neumann MD Ganglion cyst of volar aspect of right wrist (Primary Dx) 03/01/2025 10:52 PM CDT - 03/02/2025 12:45 AM CDT Emergency [address] [address] Pain, dental (Primary Dx); Ganglion cyst; Right wrist pain Discharge Disposition: Discharge to home or self care 02/22/2025 9:49 PM CDT - 02/22/2025 10:51 PM CDT Emergency [address] [address] Chronic neck pain (Primary Dx) Discharge Disposition: Discharge to home or self care 01/27/2025 8:11 PM CDT - 01/27/2025 8:50 PM CDT Emergency [address] [address] Sapna Rosas MD Pain, dental (Primary Dx) Discharge Disposition: Discharge to home or self care 01/20/2025 Telephone [facility] Family Medicine at [address] [address] Brandt Roman MD Appointment Request 01/20/2025 Telephone [facility] Medical [facility] Family Medicine at [address] [place] [address] Brandt Roman MD Medical Question/Miscellaneou s 01/01/2025 Telephone [facility] Family Medicine at [address] [address] Brandt Roman MD 1st No Show Letter [...] on file Legal Sex Female 7:31 PM ASSOCIATE MEDIA DIRECTOR Gender Identity Female 05/06/2024 6:07 PM CDT [...] Chronic Care Management No change(07/08 10:34 AM ASSOCIATE MEDIA DIRECTOR) No Arabella Ferrera, RN Note: Problem: Chronic [...] HEPATITIS PANEL, ACUTE Routine 06/07/2022 12:17 PM ASSOCIATE MEDIA DIRECTOR Routine screening for STI (sexually transmitted infection) PAP AND HIGH RISK HPV, REFLEX TO GENOTYPING Routine 06/07/2022 11:44 AM ASSOCIATE MEDIA DIRECTOR Cervical cancer screening Encounter for screening for [...] by Darrius Reynolds M.D. T: Report ID: [id number] Reading Location: [place] [address] Procedure Note Darrius Reynolds MD - 03/01/2025 [...] by Darrius Reynolds M.D. T: Report ID: [id number] Reading Location: [id number] us Noel Livingston MD IMG XR PROCEDURES [...] Darrius Reynolds M.D. KH T: Report ID: [id number] Reading Location: [id number] Procedure Note Darrius Reynolds MD - 03/01/2025 [...] signed by Darrius WASHINGTON T: Report ID: [id number] Reading Location: [id number] Noel Livingston MD IM XR PROCEDURES F inal Result * Hepatitis panel, acute (06/07/2022 12:17 PM ASSOCIATE MEDIA DIRECTOR) Hep A IgM Nonreactive Nonreactive [facility] Comment: Interpretive Data: If Hep A IgM Ab is reported as Equivocal, a new sample should be drawn in two weeks for testing. Current interpretive data was last revised on 19. Hep B core IgM Nonreactive Nonreactive [facility] Comment: Interpretive Data If HepB Core IgM Ab is reported as Equivocal, a new sample should be drawn in two weeks for testing. Current interpretive data was last revised on 19. Hep C Ab Nonreactive Nonreactive [facility] Comment: Interpretive Data Nonreactive: Antibodies to [...] last revised on 2019. HepBsAg Nonreactive Nonreactive [facility] Blood 06/07/2022 12:1 7 PM ASSOCIATE MEDIA DIRECTOR 06/07/2022 2:50 PM ASSOCIATE MEDIA DIRECTOR us Serene Fitch NP LAB MICROBIOLOGY - GENERAL ORDER FREDRICK Final Result [facility] [address] [facility] Department [place] [address] * Pap and High Risk HPV, reflex to Genotyping (06/07/2022 11:44 AM ASSOCIATE MEDIA DIRECTOR) Vaginal (Pap test) 06/07/2022 11:44 AM ASSOCIATE MEDIA DIRECTOR 06/07/2022 11:44 AM ASSOCIATE MEDIA DIRECTOR Narrative PATHOLOGY [facility] - 06/12/2022 11:58 AM ASSOCIATE MEDIA DIRECTOR [facility] Department of Pathology [address] [place] [id number] Final Report with Addendum Note to [...] the details. Patient Name: JAMI VELASQUEZ Address: [address] [place] [address] Gender: F : 1990 (Age: 31) Service: Location: Hospital #: [id number] Patient Type: E SPECIMEN Taken: 06/07/2022 Received: 06/07/2022 Accessioned:: 06/08/2022 Reported: 06/12/2022 [facility]: Source of Specimen: SCREENING THIN PREP [...] Test performed utilizing Gen-Probe Aptima assay. NAE Rojas(ASCP)Report Electronically Reviewed and Signed Out By LUPE [...] determined by the Surgical Pathology Department at [facility] as part of an ongoing director quality assurance program and in compliance with federally mandated [...] characteristics determined by the Surgical Pathology Department [facility]. It has not been cleared or approved by the U. S. Food and Drug Administration. Serene Fitch NP LAB CYTOLOGY ORDERABLES Final Re sult PATHOLOGY [facility] from Last 3 Months or Most Recently Relevant to Health Maintenance Insurance [facility] Care Teams Product Controller Relationship Specialty Start Date End Date Brandt Roman MD PCP - General Family Medicine 05/23/22 Praful Machado MD Consulting Physician Obstetrics and Gynecology 08/20/22
--- OUTSIDE RECORDS SUMMARY | 2025-03-25 21:57 | XMS_ITS | Encounter Summary ---
Author Organization [facility] Healthcare Address [address] [place] [address] Care Team Providers Care Tomography Technologist Name Role Phone Brandt Roman MD Primary Care Provider [phone] Praful Machado MD Unavailable [phone] Encounter Details Date Type Department Care Team (Late st Contact Info) Description 12/31/2023 Telephone [facility] at [facility] Advanced Medicine [address] [facility] [address] [place] [id number] Nima Gan, [address] [facility] [address] [place] [address] Social History Tobacco Use Types Packs/Day Years [...] on file Legal Sex Female 7:31 PM WATER TAXI BOAT MATE Gender Identity Female 05/06/2024 6:07 PM CDT [...] documented as of this encounter Care Teams Tomography Technologist Relationship Specialty Start Date End Date Brandt Roman MD PCP - General Family Medicine 05/23/22 Praful Machado MD Consulting Physician Obstetrics and Gynecology 08/20/22 documented as of this encounter
== END 2025-03-25 22:14 | disposition left against medical advice (07) ==
PROVIDERS: PCP Family Medicine
DX: K08.89 Other specified disorders of teeth and supporting structures (principal)
CPT/HCPCS: 99199

== ENCOUNTER 2025-03-26 10:32 | Emergency (ER) | payer OTHER, SELFPAY ==
--- OUTSIDE RECORDS SUMMARY | 2025-03-26 10:45 | XMS_ITS | Encounter Summary ---
Author Organization [facility] Healthcare Address [address] [place] [address] Care Team Providers Care Automotive Electrical Fitter Name Role Phone Brandt Roman MD Primary Care Provider Praful Machado MD Unavailable [phone] Encounter Details Date Type Department Care Team (Late st Contact Info) Description 04/17/[address] [facility] Medical Group Family Medicine at [address] [place] [address] Brandt Roman MD [address] [place] [address] [address] [place] [address] Social History Tobacco Use Types Packs/Day Years [...] on file Legal Sex Female 7:31 PM LINE PERSON Gender Identity Female 05/06/2024 6:07 PM CDT Sexual Orientation Straight 05/06/2024 6: 07 PM CDT documented as of this encounter Plan of Treatment Not on file documented as of this encounter Goals Goal Patient Goal Type Associated Problems Recent Progress Patient-Stated? Author CCM Chronic Pain Care Plan Chronic Care Management No change(07/08 10:34 AM LINE PERSON) No Arabella Ferrera, SOL[place] Note: Problem: Chronic Pain Goals: 1. Minimize further functional decline 2. Maximize quality of life 3. Control pain Strategies: - Activity/exercise program recommendation - Conservative stepwise pain medicine strategy with multi-disciplinary approach - Recommend healthy lifestyle strategies and compensatory methods as needed documented as of this encounter Visit Diagnoses Not on filedocumented in this encounter Care Teams Automotive Electrical Fitter Relationship Specialty Start Date End Date Brandt Roman MD PCP - General Family Medicine 05/23/22 Praful Machado MD Consulting Physician Obstetrics and Gynecology 08/20/22 documented as of this encounter
--- OUTSIDE RECORDS SUMMARY | 2025-03-26 10:45 | XMS_ITS | Encounter Summary ---
Author Organization [facility] Healthcare Address [address] [place] [address] Care Team Providers Care Coroner'S Juror Name Role Phone Brandt Roman MD Primary Care Provider [phone] Praful Machado MD Unavailable [phone] Reason for Visit * Reason Onset Date Comments PMC Preprocedure 07/06/2024 Encounter Details Date Type Department Care Team (Late st Contact Info) Description 07/06/2024 Telephone [facility] [place] [facility] Advanced Medicine [address] [facility] [address] [place] [address] Chiquita Christensen MD [address] [place] [address] [facility] Preprocedure Social History Tobacco Use Types Packs/Day [...] on file Legal Sex Female 7:31 PM STATION INSTALLER Gender Identity Female 05/06/2024 6:07 PM CDT Sexual Orientation Straight 05/06/2024 6: 07 PM CDT documented as of this encounter Plan of Treatment Not on file documented as of this encounter Goals Goal Patient Goal Type Associated Problems Recent Progress Patient-Stated? Author CCM Chronic Pain Care Plan Chronic Care Management No change(07/08 10:34 AM STATION INSTALLER) No Arabella Ferrera, SOLEDAD Note: Problem: Chronic Pain Goals: 1. Minimize further functional decline 2. Maximize quality of life 3. Control pain Strategies: - Activity/exercise program recommendation - Conservative stepwise pain medicine strategy with multi-disciplinary approach - Recommend healthy lifestyle strategies and compensatory methods as needed documented as of this encounter Visit Diagnoses Not on filedocumented in this encounter Care Teams Coroner'S Juror Relationship Specialty Start Date End Date Brandt Roman MD PCP - General Family Medicine 05/23/22 Praful Machado MD Consulting Physician Obstetrics and Gynecology 08/20/22 documented as of this encounter
--- OUTSIDE RECORDS SUMMARY | 2025-03-26 10:45 | XMS_ITS | Clinical Summary ---
Author Organization [facility] Address [address] [place] [address] Care Team Providers Care Sales Engineer Account Manager Name Role Phone Brandt Roman MD Primary Care Provider [phone] Praful Machado MD Unavailable [phone] Allergies Active Allergy Reactions Criticality Noted Date [...] (10/11/2022): Added automatically from request for surgery [id number] Ganglion cyst of volar aspect of right wrist Ganglion of right hand 08/29/2022 Chronic right lower quadrant pain 06/07/2022 Assessment & Plan (06/07/2022 11:58 AM PHARMACOMETRICIAN): Chronic, currently asymptomatic, states she was told in ER that she should be checked for endometriosis-referred to oil burner technician for further evaluation and management. Routine screening for STI (sexually transmitted infection) 06/07/2022 Assessment & Plan (06/07/2022 11:58 AM PHARMACOMETRICIAN): Ordered STI screening. Cervical cancer screening 06/07/2022 Assessment & Plan (06/07/2022 11:58 AM PHARMACOMETRICIAN): Pap obtained. Encounter for screening for human papillomavirus (HPV) 06/07/2022 Assessment & Plan (06/07/2022 11:58 AM PHARMACOMETRICIAN): Ordered screening for HPV. Encounter for well woman chaparro aviles with routine gynecological exam 06/07/2022 Assessment & Plan (06/07/2022 11:58 AM PHARMACOMETRICIAN): Encouraged monthly breast self exams. Discussed current guidelines that recommend pap smears for women 30-65 years old every 3 years or every 5 years depending on whether co-screening for HPV is done at time of pap and if results of pap are normal. Screening breast examination 06/07/2022 Assessment & Plan (06/07/2022 11:59 AM PHARMACOMETRICIAN): In office breast exam performed with no abnormal finding except for tenderness upon palpation to outer quadrants of bilateral breasts. Pain of both breasts 06/07/2022 Assessment & Plan (06/07/2022 11:59 AM PHARMACOMETRICIAN): Acute-referred for ultrasound bilateral breasts. Encounter for [...] in your mouth on an connie like [employer] Lower carb substitutions: [employer] carries a zero [...] in much longer they will become mushy [place] and/or coconut flour instead of regular flour [...] pork rinds For yogurt, try Two Good cuban yogurt Use Pinterest for recipe ideas. Type [...] Description 03/24/2025 7:15 AM CDT Office Visit [facility] Medical Group Hand Surgery [address] [place] [phone] Quentin Neumann MD Ganglion cyst of volar aspect of right wrist (Primary Dx) 03/01/2025 10:52 PM CDT - 03/02/2025 12:45 AM CDT Emergency [address] [address] Pain, dental (Primary Dx); Ganglion cyst; Right wrist pain Discharge Disposition: Discharge to home or self care 02/22/2025 9:49 PM CDT - 02/22/2025 10:51 PM CDT Emergency [address] [address] Chronic neck pain (Primary Dx) Discharge Disposition: Discharge to home or self care 01/27/2025 8:11 PM CDT - 01/27/2025 8:50 PM CDT Emergency [address] [address] Sapna Rosas MD Pain, dental (Primary Dx) Discharge Disposition: Discharge to home or self care 01/20/2025 Telephone [facility] Family Medicine at [address] [address] Brandt Roman MD Appointment Request 01/20/2025 Telephone [facility] Medical [facility] Family Medicine at [address] [place] [address] Brandt Roman MD Medical Question/Miscellaneou s 01/01/2025 Telephone [facility] Family Medicine at [address] [address] Brandt Roman MD 1st No Show Letter [...] on file Legal Sex Female 7:31 PM PHARMACOMETRICIAN Gender Identity Female 05/06/2024 6:07 PM CDT [...] Chronic Care Management No change(07/08 10:34 AM PHARMACOMETRICIAN) No Arabella Ferrera, RN Note: Problem: Chronic [...] HEPATITIS PANEL, ACUTE Routine 06/07/2022 12:17 PM PHARMACOMETRICIAN Routine screening for STI (sexually transmitted infection) PAP AND HIGH RISK HPV, REFLEX TO GENOTYPING Routine 06/07/2022 11:44 AM PHARMACOMETRICIAN Cervical cancer screening Encounter for screening for [...] by Darrius Reynolds M.D. T: Report ID: [id number] Reading Location: [place] [address] Procedure Note Darrius Reynolds MD - 03/01/2025 [...] by Darrius Reynolds M.D. T: Report ID: [id number] Reading Location: [id number] us Noel Livingston MD IMG XR PROCEDURES [...] Darrius Reynolds M.D. KH T: Report ID: [id number] Reading Location: [id number] Procedure Note Darrius Reynolds MD - 03/01/2025 [...] signed by Darrius WASHINGTON T: Report ID: [id number] Reading Location: [id number] Noel Livingston MD IM XR PROCEDURES F inal Result * Hepatitis panel, acute (06/07/2022 12:17 PM PHARMACOMETRICIAN) Hep A IgM Nonreactive Nonreactive [facility] Comment: Interpretive Data: If Hep A IgM Ab is reported as Equivocal, a new sample should be drawn in two weeks for testing. Current interpretive data was last revised on 19. Hep B core IgM Nonreactive Nonreactive [facility] Comment: Interpretive Data If HepB Core IgM Ab is reported as Equivocal, a new sample should be drawn in two weeks for testing. Current interpretive data was last revised on 19. Hep C Ab Nonreactive Nonreactive [facility] Comment: Interpretive Data Nonreactive: Antibodies to HCV [...] last revised on 2019. HepBsAg Nonreactive Nonreactive [facility] Blood 06/07/2022 12:1 7 PM PHARMACOMETRICIAN 06/07/2022 2:50 PM PHARMACOMETRICIAN us Serene Fitch NP LAB MICROBIOLOGY - GENERAL ORDER FREDRICK Final Result [facility] [address] [facility] Department [place] [address] * Pap and High Risk HPV, reflex to Genotyping (06/07/2022 11:44 AM PHARMACOMETRICIAN) Vaginal (Pap test) 06/07/2022 11:44 AM PHARMACOMETRICIAN 06/07/2022 11:44 AM PHARMACOMETRICIAN Narrative PATHOLOGY [facility] - 06/12/2022 11:58 AM PHARMACOMETRICIAN [facility] Department of Pathology [address] [place] [address] Final Report with Addendum Note to [...] the details. Patient Name: JAMI VELASQUEZ Address: [address] [place] [address] Gender: F : 1990 (Age: 31) Service: Location: Hospital #: [id number] Patient Type: E SPECIMEN Taken: 06/07/2022 Received: [...] determined by the Surgical Pathology Department at [facility] as part of an ongoing supervisor type disk quality control program and in compliance with federally mandated [...] characteristics determined by the Surgical Pathology Department [facility]. It has not been cleared or approved by the U. S. Food and Drug Administration. Serene Fitch NP LAB CYTOLOGY ORDERABLES Final Re sult PATHOLOGY [facility] from Last 3 Months or Most Recently Relevant to Health Maintenance Insurance [facility] Care Teams Sales Engineer Account Manager Relationship Specialty Start Date End Date Brandt Roman MD PCP - General Family Medicine 05/23/22 Praful Machado MD Consulting Physician Obstetrics and Gynecology 08/20/22
--- OUTSIDE RECORDS SUMMARY | 2025-03-26 10:45 | XMS_ITS | Encounter Summary ---
Author Organization [facility] Healthcare Address [address] [place] [address] Care Team Providers Care Lining Stamper Name Role Phone Brandt Roman MD Primary Care Provider [phone] Praful Machado MD Unavailable [phone] Encounter Details Date Type Department Care Team (Late st Contact Info) Description 05/08/2024 Telephone [facility] Medical Group Family Medicine at [address] [place] [address] Brandt Roman MD [address] [place] [address] [address] [place] [address] Social History Tobacco Use Types Packs/Day Years [...] on file Legal Sex Female 7:31 PM RECORDINGS LIBRARIAN Gender Identity Female 05/06/2024 6:07 PM CDT Sexual Orientation Straight 05/06/2024 6: 07 PM CDT documented as of this encounter Plan of Treatment Not on file documented as of this encounter Goals Goal Patient Goal Type Associated Problems Recent Progress Patient-Stated? Author CCM Chronic Pain Care Plan Chronic Care Management No change(07/08 10:34 AM RECORDINGS LIBRARIAN) No Arabella Ferrera, [place] Note: Problem: Chronic Pain Goals: 1. Minimize further functional decline 2. Maximize quality of life 3. Control pain Strategies: - Activity/exercise program recommendation - Conservative stepwise pain medicine strategy with multi-disciplinary approach - Recommend healthy lifestyle strategies and compensatory methods as needed documented as of this encounter Visit Diagnoses Not on filedocumented in this encounter Care Teams Lining Stamper Relationship Specialty Start Date End Date Brandt Roman MD PCP - General Family Medicine 05/23/22 Praful Machado MD Consulting Physician Obstetrics and Gynecology 08/20/22 documented as of this encounter
--- OUTSIDE RECORDS SUMMARY | 2025-03-26 10:45 | XMS_ITS | Encounter Summary ---
Author Organization [facility] Healthcare Address [address] [place] [address] Care Team Providers Care Application Packaging Specialist Name Role Phone Brandt Roman MD Primary Care Provider [phone] Praful Machado MD Unavailable [phone] Encounter Details Date Type Department Care Team (Late st Contact Info) Description 12/31/[address] [facility] at [facility] Advanced Medicine [address] [facility] [address] [place] [phone] Nima Gan, [address] [facility] [address] [place] [address] Social History Tobacco Use Types Packs/Day Years [...] on file Legal Sex Female 7:31 PM REMARKETING REP Gender Identity Female 05/06/2024 6:07 PM CDT [...] documented as of this encounter Care Teams Application Packaging Specialist Relationship Specialty Start Date End Date Brandt Roman MD PCP - General Family Medicine 05/23/22 Praful Machado MD Consulting Physician Obstetrics and Gynecology 08/20/22 documented as of this encounter
--- OUTSIDE RECORDS SUMMARY | 2025-03-26 10:45 | XMS_ITS | Clinical Summary ---
Author Organization [facility] Address [address] [place] [address] Care Team Providers Care Fast Food Worker Name Role Phone Brandt Roman MD Primary Care Provider [phone] Allergies Active Allergy Reactions Criticality Noted Date [...] Sex Assigned at Female 08/11/2024 10:42 AM CARDIAC EXERCISE PHYSIOLOGIST Legal Sex Female 10:29 PM CDT Gender Identity Not on file Sexual Orientation Not on file Last Filed Vital Signs Vital Sign Reading Time Taken Comments Blood Pressure 119/74 08/11/2024 11:02 AM CARDIAC EXERCISE PHYSIOLOGIST Pulse 82 08/11/2024 11:02 AM CARDIAC EXERCISE PHYSIOLOGIST Temperature 36.5 C (97.7 F) 08/11/2024 11:02 AM CARDIAC EXERCISE PHYSIOLOGIST Respiratory Rate 18 08/11/2024 11:02 AM CARDIAC EXERCISE PHYSIOLOGIST Oxygen Saturation 100% 08/11/2024 11:02 AM CARDIAC EXERCISE PHYSIOLOGIST Inhaled Oxygen Concentration - - Weight 81.2 kg (179 lb) 08/11/2024 11:02 AM CARDIAC EXERCISE PHYSIOLOGIST Height 160 cm (5' 3) 08/11/2024 11:02 AM CARDIAC EXERCISE PHYSIOLOGIST Body Mass Index 31.71 08/11/2024 11:02 AM CARDIAC EXERCISE PHYSIOLOGIST Plan of Treatment Health Maintenance Due Date [...] 3 Years 06/07/2025 06/07/2022 Cervical Cancer Screening [facility] HPV 06/07/2025 Hepatitis B Vaccines Completed [...] patient's age to complete this topic Insurance [place] Care Teams Fast Food Worker Relationship Specialty Start Date End Date Brandt Roman MD [address] [place] [address] [address] [place] [address] PCP - General FAMILY PRACTICE 01/13/24
[2025-03-26 11:15] VITALS: BP 114/77; PULSE 75; RESP 18; TEMP 36.6; O2SAT 99
--- NOTE | 2025-03-26 11:50 | ED.DENTAL ---
HPI - Dental/Oral General Chief complaint: Dental/Oral Stated complaint: tooth absess Time Seen by Provider: 03/26/25 11:24 Source: patient and RN notes reviewed Mode of arrival: ambulatory Limitations: no limitations History of Present Illness HPI Narrative: 34-year-old female presents [facility] complaining of dental abscess since last month. Patient was seen here last month was given antibiotics for dental infection. Patient says she has an appointment with a dentist next Saturday on April 02. Since then the patient reports worsening pain, swelling to left side of her mouth. Patient reports difficulty eating due to the cold and heat and sensitivities. Patient denies any difficulty breathing, locked jaw, nausea, vomiting, fevers or any other symptoms. Patient has not taken anything for pain. Related Data Home Medications ?Medication ?Instructions ?Recorded ?Confirmed ?Last Taken ?Type albuterol sulfate 90 mcg/actuation inhalation 12/02/24 Unknown History aerosol inhaler buspirone 15 mg tablet mg 12/02/24 Unknown History clonazepam 0.5 mg tablet mg 12/02/24 Unknown History dextroamphetamine-amphetamine ER PO 12/02/24 Unknown History 20 mg 24hr capsule,extend release sertraline 100 mg tablet mg 12/02/24 Unknown History trazodone 100 mg tablet mg 12/02/24 Unknown History Allergies Allergy/AdvReac Type Severity Reaction Status Date / Time Sulfa (Sulfonamide Allergy Intermediate Rash Verified 03/26/25 11:19 Antibiotics) tramadol Allergy Intermediate Rash Verified 03/26/25 11:19 Review of Systems Review of Systems: CONSTITUTIONAL: Denies fever, chills, or sweats. EYES: Denies visual changes, redness, or discharge. ENT: Denies rhinorrhea, congestion, sore throat, difficulty swallowing, or otalgia. MOUTH: Positive for dental pain. Negative for trismus. CARDIOVASCULAR: Denies chest pain, palpitations, or edema. RESPIRATORY: Denies cough or dyspnea. GASTROINTESTINAL: Denies abdominal pain, nausea, vomiting, or diarrhea. GENITOURINARY: Denies dysuria or hematuria. SKIN: Denies rash or itching. MUSCULOSKELETAL: Denies back pain, joint pain, or myalgia. NEUROLOGIC: Denies headache, numbness, or weakness. PSYCHIATRIC: Denies anxiety or depression. All other systems reviewed are negative, except as documented in HPI. [facility] Past Medical History Medical History Depression Anxiety Surgical History Surgical History No pertinent past surgical history Family History Family History Mother Family history non-contributory Social History Social History Living arrangements: with family Gender identity (if verbalized by the patient): Female Spiritual care concerns: No Comments At the time of my signature, I reviewed and agree with the nursing past medical, surgical, social, and family history. There is no relevant family history pertinent to the patient complaint. Exam Narrative: GENERAL: This is a well-nourished, well-developed adult, in no apparent distress. They are non ill-appearing, nontoxic appearing. HEAD: normocephalic, atraumatic. EYES: Sclera clear/white. Conjunctiva normal. Vision is grossly intact. Extraocular movements intact EARS: External ears normal, Hearing grossly intact. NOSE: External nose normal THROAT: Mucous membranes moist, posterior pharynx clear, without erythema or swelling. Uvula midline. OROPHARYNX: Erythematous to the left upper 2nd molar and to the left lower 2nd molar. It is tender to palpate. No pain or swelling under the tongue. Tongue is normal. Gross tooth decay. Poor dentition. No suspicious lesions or ulcerations. NECK: Neck supple, non-tender without lymphadenopathy, masses or thyromegaly. CARDIOVASCULAR: Regular rate and rhythm RESPIRATORY: Respiratory rate normal, respiratory effort nonlabored, no respiratory distress SKIN: warm, Dry, intact with no suspicious lesions or rash, good texture and turgor. NEURO: awake, alert, and oriented to person, place and time. There were no obvious focal neurologic abnormalities. EXTREMITIES: No joint tenderness, effusion, or edema noted. Course Course Emergency Course: Portions of this record may have been created with voice recognition software Vital Signs Vital signs: Vital Signs Temperature 97.8 F 03/26/25 11:15 Pulse Rate 75 03/26/25 11:15 Respiratory Rate 18 03/26/25 11:15 Blood Pressure 114/77 03/26/25 11:15 Pulse Oximetry 99 03/26/25 11:15 Oxygen Delivery Room Air 03/26/25 11:15 Temperature 97.8 F 03/26/25 11:15 Pulse Rate 75 03/26/25 11:15 Respiratory Rate 18 03/26/25 11:15 Blood Pressure 114/77 03/26/25 11:15 Pulse Oximetry 99 03/26/25 11:15 Oxygen Delivery Room Air 03/26/25 11:15 Reviewed MDM - Dental/Oral MDM Narrative Medical decision making narrative: Patient likely has multiple dental abscess. Patient not on antibiotics currently. Will prescribe a course Augmentin the keep her covered until her appointment next week with her dentist. Will also prescribe viscous lidocaine. Advised patient to have a soft food diet and alternate with Tylenol and ibuprofen. Discussed physical exam findings. Advised supportive measures and signs/symptoms to go to the ER. Pt is appropriate for outpt treatment and f/u. Differential Diagnosis Differential diagnosis: Likely gingival abscess, dental caries, dental abscess and fracture of tooth Critical Care Time Critical Care Time Critical Care Time: No Discharge Plan Discharge Clinical Impression: Dental abscess Patient Disposition: Home Condition: Stable Instructions: Antibiotic Form, Dental Abscess (ED) Additional Instructions: Take the antibiotics as directed. You may take ibuprofen 600 mg to 800 mg every 6-8 hours. Do not exceed more than 800 mg of ibuprofen per dose. Do not exceed more than 3200 mg ibuprofen in a day. You may take up to 1000 mg Tylenol every 6-8 hours. Do not exceed 1000 mg per dose, do exceed more than 4000 mg of Tylenol in a day. You may use viscous lidocaine as needed for pain in your mouth. Use a Q-tip and apply directly to the affected area. Victoria your teeth and floss at least 2 times a day. Follow-up with dentist next week. He developed worsening swelling, fevers, difficulty swallowing or breathing, difficulty opening her jaw, swelling under the tongue, or any other concerns please go to the ER immediately. Patient Language: Burundian Prescriptions: New lidocaine HCl [Lidocaine Viscous] 2 % solution 1 applic mucous membrane TID PRN (Reason: pain) Qty: 100 0RF Rx Instructions: Apply to affected tooth. amoxicillin-pot clavulanate 875-125 mg tablet 1 tablet PO Q12H 10 Days Qty: 20 0RF No Action clonazepam 0.5 mg tablet sertraline 100 mg tablet dextroamphetamine-amphetamine 20 mg capsule,extended release 24hr PO trazodone 100 mg tablet albuterol sulfate 90 mcg/actuation HFA aerosol inhaler INHALATION buspirone 15 mg tablet meloxicam 15 mg tablet 15 mg PO DAILY PRN (Reason: pain) Qty: 10 0RF clindamycin HCl 300 mg capsule 300 mg PO Q8H 7 Days Qty: 21 0RF ondansetron 4 mg tablet,disintegrating 4 mg PO Q8H PRN (Reason: nausea and vomiting) Qty: 10 0RF Follow-up/Referrals: Jessie,MD Brandt [Primary Care Provider, Unknown] Stand Alone Forms: Work/School Release IP Time of Disposition: 11:48
--- OUTSIDE RECORDS SUMMARY | 2025-03-26 11:53 | XMS_ITS | Encounter Summary ---
Author Organization [facility] Healthcare Address [address] [place] [address] Care Team Providers Care Precision Lens Polisher Name Role Phone Brandt Roman MD Primary Care Provider [phone] Praful Machado MD Unavailable [phone] Encounter Details Date Type Department Care Team (Late st Contact Info) Description 12/31/2023 Telephone [facility] the [facility] [address] [facility] [address] [place] [id number] Nima Gan, [address] [facility] [address] [place] [address] Social History Tobacco Use Types Packs/Day Years [...] on file Legal Sex Female 7:31 PM CLINICAL INTERVIEWER Gender Identity Female 05/06/2024 6:07 PM CDT [...] documented as of this encounter Care Teams Precision Lens Polisher Relationship Specialty Start Date End Date Brandt Roman MD PCP - General Family Medicine 05/23/22 Praful Machado MD Consulting Physician Obstetrics and Gynecology 08/20/22 documented as of this encounter
--- OUTSIDE RECORDS SUMMARY | 2025-03-26 11:53 | XMS_ITS | Clinical Summary ---
Author Organization [facility] Address [address] [place] [address] Care Team Providers Care Insurance Job Titles Name Role Phone Brandt Roman MD Primary Care Provider [phone] Praful Machado MD Unavailable [phone] Allergies Active Allergy Reactions Criticality Noted Date [...] (10/11/2022): Added automatically from request for surgery [id number] Ganglion cyst of volar aspect of right wrist Ganglion of right hand 08/29/2022 Chronic right lower quadrant pain 06/07/2022 Assessment & Plan (06/07/2022 11:58 AM TERRAZZO WORKER HELPER): Chronic, currently asymptomatic, states she was told in ER that she should be checked for endometriosis-referred to nurse leader for further evaluation and management. Routine screening for STI (sexually transmitted infection) 06/07/2022 Assessment & Plan (06/07/2022 11:58 AM TERRAZZO WORKER HELPER): Ordered STI screening. Cervical cancer screening 06/07/2022 Assessment & Plan (06/07/2022 11:58 AM TERRAZZO WORKER HELPER): Pap obtained. Encounter for screening for human papillomavirus (HPV) 06/07/2022 Assessment & Plan (06/07/2022 11:58 AM TERRAZZO WORKER HELPER): Ordered screening for HPV. Encounter for well woman chaparro aviles with routine gynecological exam 06/07/2022 Assessment & Plan (06/07/2022 11:58 AM TERRAZZO WORKER HELPER): Encouraged monthly breast self exams. Discussed current guidelines that recommend pap smears for women 30-65 years old every 3 years or every 5 years depending on whether co-screening for HPV is done at time of pap and if results of pap are normal. Screening breast examination 06/07/2022 Assessment & Plan (06/07/2022 11:59 AM TERRAZZO WORKER HELPER): In office breast exam performed with no abnormal finding except for tenderness upon palpation to outer quadrants of bilateral breasts. Pain of both breasts 06/07/2022 Assessment & Plan (06/07/2022 11:59 AM TERRAZZO WORKER HELPER): Acute-referred for ultrasound bilateral breasts. Encounter for [...] in your mouth on an connie like HOLLR Lower carb substitutions: [employer] carries a zero [...] in much longer they will become mushy [place] and/or coconut flour instead of regular flour [...] pork rinds For yogurt, try Two Good cypriot yogurt Use Pinterest for recipe ideas. Type [...] Description 03/24/2025 7:15 AM CDT Office Visit [facility] Hand Surgery [address] [place] [phone] Quentin Neumann MD Ganglion cyst of volar aspect of right wrist (Primary Dx) 03/01/2025 10:52 PM CDT - 03/02/2025 12:45 AM CDT Emergency [address] [address] Pain, dental (Primary Dx); Ganglion cyst; Right wrist pain Discharge Disposition: Discharge to home or self care 02/22/2025 9:49 PM CDT - 02/22/2025 10:51 PM CDT Emergency [address] [address] Chronic neck pain (Primary Dx) Discharge Disposition: Discharge to home or self care 01/27/2025 8:11 PM CDT - 01/27/2025 8:50 PM CDT Emergency [address] [address] Sapna Rosas MD Pain, dental (Primary Dx) Discharge Disposition: Discharge to home or self care 01/20/2025 Telephone [facility] Family Medicine at [address] [address] Brandt Roman MD Appointment Request 01/20/2025 Telephone [facility] Family Medicine at [address] [place] [address] Brandt Roman MD Medical Question/Miscellaneou s 01/01/2025 Telephone [facility] Family Medicine at [address] [address] Brandt Roman MD 1st No Show Letter [...] History Relation Name Comments Depression Brother Arvind Vealsquez Cancer Father Oli Velasquez Diabetes Father Oli [...] on file Legal Sex Female 7:31 PM TERRAZZO WORKER HELPER Gender Identity Female 05/06/2024 6:07 PM CDT [...] Chronic Care Management No change(07/08 10:34 AM TERRAZZO WORKER HELPER) No Arabella Ferrera, RN Note: Problem: Chronic [...] HEPATITIS PANEL, ACUTE Routine 06/07/2022 12:17 PM TERRAZZO WORKER HELPER Routine screening for STI (sexually transmitted infection) PAP AND HIGH RISK HPV, REFLEX TO GENOTYPING Routine 06/07/2022 11:44 AM TERRAZZO WORKER HELPER Cervical cancer screening Encounter for screening for [...] by Darrius Reynolds M.D. T: Report ID: [id number] [place] Location: [place] [address] Procedure Note Darrius Reynolds MD - 03/01/2025 [...] by Darrius Reynolds M.D. T: Report ID: [id number] [place] Location: [id number] Noel Livingston MD IMG XR PROCEDURES [...] Darrius Reynolds M.D. KH T: Report ID: [id number] [place] Location: [id number] Procedure Note Darrius Reynolds MD - 03/01/2025 [...] signed by Darrius WASHINGTON T: Report ID: [id number] [place] Location: [id number] Noel Livingston MD IM XR PROCEDURES F inal Result * Hepatitis panel, acute (06/07/2022 12:17 PM TERRAZZO WORKER HELPER) Hep A IgM Nonreactive Nonreactive [facility] Comment: Interpretive Data: If Hep A IgM Ab is reported as Equivocal, a new sample should be drawn in two weeks for testing. Current interpretive data was last revised on 19. Hep B core IgM Nonreactive Nonreactive [facility] Comment: Interpretive Data If HepB Core IgM Ab is reported as Equivocal, a new sample should be drawn in two weeks for testing. Current interpretive data was last revised on 19. Hep C Ab Nonreactive Nonreactive [facility] Comment: Interpretive Data Nonreactive: Antibodies to HCV [...] last revised on 2019. HepBsAg Nonreactive Nonreactive [facility] Blood 06/07/2022 12:1 7 PM TERRAZZO WORKER HELPER 06/07/2022 2:50 PM TERRAZZO WORKER HELPER us Serene Fitch NP LAB MICROBIOLOGY - GENERAL ORDER FREDRICK Final Result [facility] [address] [facility] Department [place] [address] * Pap and High Risk HPV, reflex to Genotyping (06/07/2022 11:44 AM TERRAZZO WORKER HELPER) Vaginal (Pap test) 06/07/2022 11:44 AM TERRAZZO WORKER HELPER 06/07/2022 11:44 AM TERRAZZO WORKER HELPER Narrative PATHOLOGY [facility] - 06/12/2022 11:58 AM TERRAZZO WORKER HELPER [facility] Department of Pathology [address] [place] [id number] Final Report with Addendum Note to [...] details. Patient Name: JAMI VELASQUEZ Address: [address] [place] [address] Gender: F : 1990 (Age: 31) Service: Location: Hospital #: [id number] Patient Type: E SPECIMEN Taken: 06/07/2022 Received: 06/07/2022 Accessioned:: 06/08/2022 Reported: 06/12/2022 [facility] Diagnosis: Source of Specimen: SCREENING THIN PREP [...] determined by the Surgical Pathology Department at [facility] as part of an ongoing quality checker program and in compliance with federally mandated [...] characteristics determined by the Surgical Pathology Department [facility]. It has not been cleared or approved by the U. S. Food and Drug Administration. Serene Fitch NP LAB CYTOLOGY ORDERABLES Final Re sult PATHOLOGY [facility] from Last 3 Months or Most Recently Relevant to Health Maintenance Insurance [facility] Care Teams Insurance Job Titles Relationship Specialty Start Date End Date Brandt Roman MD PCP - General Family Medicine 05/23/22 Praful Machado MD Consulting Physician Obstetrics and Gynecology 08/20/22
--- OUTSIDE RECORDS SUMMARY | 2025-03-26 11:53 | XMS_ITS | Encounter Summary ---
Author Organization [facility] Healthcare Address [address] [place] [address] Care Team Providers Care Magnetic Tape Typewriter Operator Name Role Phone Brandt Roman MD Primary Care Provider [phone] Praful Machado MD Unavailable [phone] Encounter Details Date Type Department Care Team (Late st Contact Info) Description 04/17/2024 Telephone [facility] Medical [facility] Family Medicine at [address] [place] [address] Brandt Roman MD [address] [place] [address] [address] [place] [address] Social History Tobacco Use Types Packs/Day Years [...] on file Legal Sex Female 7:31 PM RIDES ATTENDANT Gender Identity Female 05/06/2024 6:07 PM CDT Sexual Orientation Straight 05/06/2024 6: 07 PM CDT documented as of this encounter Plan of Treatment Not on file documented as of this encounter Goals Goal Patient Goal Type Associated Problems Recent Progress Patient-Stated? Author CCM Chronic Pain Care Plan Chronic Care Management No change(07/08 10:34 AM RIDES ATTENDANT) No Arabella Ferrera, [place] Note: Problem: Chronic Pain Goals: 1. Minimize further functional decline 2. Maximize quality of life 3. Control pain Strategies: - Activity/exercise program recommendation - Conservative stepwise pain medicine strategy with multi-disciplinary approach - Recommend healthy lifestyle strategies and compensatory methods as needed documented as of this encounter Visit Diagnoses Not on filedocumented in this encounter Care Teams Magnetic Tape Typewriter Operator Relationship Specialty Start Date End Date Brandt Roman MD PCP - General Family Medicine 05/23/22 Praful Machado MD Consulting Physician Obstetrics and Gynecology 08/20/22 documented as of this encounter
--- OUTSIDE RECORDS SUMMARY | 2025-03-26 11:53 | XMS_ITS | Encounter Summary ---
Author Organization [facility] Healthcare Address [address] [place] [address] Care Team Providers Care Special Education Teachers Name Role Phone Brandt Roman MD Primary Care Provider [phone] Praful Machado MD Unavailable [phone] Encounter Details Date Type Department Care Team (Late st Contact Info) Description 05/08/2024 Telephone [facility] Medical Group Family Medicine at [address] [place] [address] Brandt Roman MD [address] [place] [address] [address] [place] [address] Social History Tobacco Use Types Packs/Day Years [...] on file Legal Sex Female 7:31 PM FEED ADVISER Gender Identity Female 05/06/2024 6:07 PM CDT Sexual Orientation Straight 05/06/2024 6: 07 PM CDT documented as of this encounter Plan of Treatment Not on file documented as of this encounter Goals Goal Patient Goal Type Associated Problems Recent Progress Patient-Stated? Author CCM Chronic Pain Care Plan Chronic Care Management No change(07/08 10:34 AM FEED ADVISER) No Arabella Ferrera, [place] Note: Problem: Chronic Pain Goals: 1. Minimize further functional decline 2. Maximize quality of life 3. Control pain Strategies: - Activity/exercise program recommendation - Conservative stepwise pain medicine strategy with multi-disciplinary approach - Recommend healthy lifestyle strategies and compensatory methods as needed documented as of this encounter Visit Diagnoses Not on filedocumented in this encounter Care Teams Special Education Teachers Relationship Specialty Start Date End Date Brandt Roman MD PCP - General Family Medicine 05/23/22 Praful Machado MD Consulting Physician Obstetrics and Gynecology 08/20/22 documented as of this encounter
--- OUTSIDE RECORDS SUMMARY | 2025-03-26 11:53 | XMS_ITS | Encounter Summary ---
Author Organization [facility] Healthcare Address [address] [place] [address] Care Team Providers Care Merchandise Processor Name Role Phone Brandt Roman MD Primary Care Provider [phone] Praful Machado MD Unavailable [phone] Reason for Visit * Reason Onset Date Comments PMC Preprocedure 07/06/2024 Encounter Details Date Type Department Care Team (Late st Contact Info) Description 07/06/2024 Telephone [facility] [address] [facility] [address] [place] [address] Chiquita Christensen MD [address] [place] [address] [facility] Preprocedure Social History Tobacco Use [...] on file Legal Sex Female 7:31 PM LOG FEEDER Gender Identity Female 05/06/2024 6:07 PM CDT Sexual Orientation Straight 05/06/2024 6: 07 PM CDT documented as of this encounter Plan of Treatment Not on file documented as of this encounter Goals Goal Patient Goal Type Associated Problems Recent Progress Patient-Stated? Author CCM Chronic Pain Care Plan Chronic Care Management No change(07/08 10:34 AM LOG FEEDER) No Arabella Ferrera, [place] Note: Problem: Chronic Pain Goals: 1. Minimize further functional decline 2. Maximize quality of life 3. Control pain Strategies: - Activity/exercise program recommendation - Conservative stepwise pain medicine strategy with multi-disciplinary approach - Recommend healthy lifestyle strategies and compensatory methods as needed documented as of this encounter Visit Diagnoses Not on filedocumented in this encounter Care Teams Merchandise Processor Relationship Specialty Start Date End Date Brandt Roman MD PCP - General Family Medicine 05/23/22 Praful Machado MD Consulting Physician Obstetrics and Gynecology 08/20/22 documented as of this encounter
--- OUTSIDE RECORDS SUMMARY | 2025-03-26 11:53 | XMS_ITS | Clinical Summary ---
Author Organization [facility] Address [address] [place] [address] Care Team Providers Care Case Filler Name Role Phone Brandt Roman MD Primary Care Provider [phone] Allergies Active Allergy Reactions Criticality Noted Date [...] Sex Assigned at Female 08/11/2024 10:42 AM ELECTRONICS ASSEMBLER AND TESTER Legal Sex Female 10:29 PM CDT Gender Identity Not on file Sexual Orientation Not on file Last Filed Vital Signs Vital Sign [place] Time Taken Comments Blood Pressure 119/74 08/11/2024 11:02 AM ELECTRONICS ASSEMBLER AND TESTER Pulse 82 08/11/2024 11:02 AM ELECTRONICS ASSEMBLER AND TESTER Temperature 36.5 C (97.7 F) 08/11/2024 11:02 AM ELECTRONICS ASSEMBLER AND TESTER Respiratory Rate 18 08/11/2024 11:02 AM ELECTRONICS ASSEMBLER AND TESTER Oxygen Saturation 100% 08/11/2024 11:02 AM ELECTRONICS ASSEMBLER AND TESTER Inhaled Oxygen Concentration - - Weight 81.2 kg (179 lb) 08/11/2024 11:02 AM ELECTRONICS ASSEMBLER AND TESTER Height 160 cm (5' 3) 08/11/2024 11:02 AM ELECTRONICS ASSEMBLER AND TESTER Body Mass Index 31.71 08/11/2024 11:02 AM ELECTRONICS ASSEMBLER AND TESTER Plan of Treatment Health Maintenance Due Date [...] 3 Years 06/07/2025 06/07/2022 Cervical Cancer Screening [facility] HPV 06/07/2025 Hepatitis B Vaccines Completed 11/08/1998, [...] patient's age to complete this topic Insurance [employer] Care Teams Case Filler Relationship Specialty Start Date End Date Brandt Roman MD [address] [place] [address] [address] [place] [address] PCP - General FAMILY PRACTICE 01/13/24
== END 2025-03-26 12:00 | disposition home or self-care (01) ==
PROVIDERS: PCP Family Medicine
DX: K04.7 Periapical abscess without sinus (principal); F41.9 Anxiety disorder, unspecified; F32.A Depression, unspecified; Z79.899 Other long term (current) drug therapy
CPT/HCPCS: 99283

== ENCOUNTER 2025-04-23 18:22 | Emergency (ER) | payer OTHER, SELFPAY ==
[2025-04-23 18:30] VITALS: BP 111/62; PULSE 80; RESP 20; TEMP 36.9; O2SAT 100
--- NOTE | 2025-04-23 18:54 | ED_ITS ---
HPI - Dental/Oral General Chief complaint: Dental/Oral Stated complaint: Dental Pain Time Seen by Provider: 04/23/25 18:55 Source: patient, RN notes reviewed and old records reviewed Mode of arrival: ambulatory Limitations: no limitations History of Present Illness HPI Narrative: 34-year-old female presents to the [facility] with right lower posterior molar pain, decay. States that she tried going to her dentist today, was told at the front does she still had swelling to her jaw and was not able to see the dentist. Was told that she needed more antibiotics, has an appointment next week. Related Data Home Medications ?Medication ?Instructions ?Recorded ?Confirmed ?Last Taken ?Type albuterol sulfate 90 mcg/actuation inhalation 12/02/24 Unknown History aerosol inhaler buspirone 15 mg tablet mg 12/02/24 Unknown History clonazepam 0.5 mg tablet mg 12/02/24 Unknown History dextroamphetamine-amphetamine ER PO 12/02/24 Unknown History 20 mg 24hr capsule,extend release sertraline 100 mg tablet mg 12/02/24 Unknown History trazodone 100 mg tablet mg 12/02/24 Unknown History Allergies Allergy/AdvReac Type Severity Reaction Status Date / Time Sulfa (Sulfonamide Allergy Intermediate Rash Verified 04/23/25 19:11 Antibiotics) tramadol Allergy Intermediate Rash Verified 04/23/25 19:11 Review of Systems Review of Systems: All systems reviewed & are unremarkable except as noted in HPI and below Constitutional: Constitutional: Reports no additional constitutional complaints ENT: Reports as per HPI Cardiovascular: Cardiovascular: Reports no additional cardiovascular complaints, Denies chest pain and Denies dyspnea Respiratory: Respiratory: Reports no additional respiratory complaints, Denies chest congestion, Denies cough and Denies dyspnea Musculoskeletal: Musculoskeletal: Reports no additional musculoskeletal complaints Integumentary/Breasts: Skin/Breast: Reports system reviewed and no additional complaints, except as docu PMFSH Past Medical History Medical History Depression Anxiety Surgical History Surgical History No pertinent past surgical history Family History Family History Mother Family history non-contributory Social History Social History Living arrangements: with family Gender identity (if verbalized by the patient): Female Spiritual care concerns: No Comments At the time of my signature, I reviewed and agree with the nursing past medical, surgical, social, and family history. There is no relevant family history pertinent to the patient complaint. Exam Const: General: cooperative, healthy appearing, comfortable, no acute distress, well developed, alert and well nourished Nutritional Appearance: well nourished Orientation/consciousness: patient oriented x3 Limitations: no limitations HENMT: Head: normal to inspection Ears: hearing grossly normal bilaterally, external ears normal, TM's normal bilaterally, EAC's normal, mastoids normal and no periauricular adenopathy Mouth: Yes Normal oral and palatal mucosa present, Yes lip normal, Yes tongue normal and Yes moist mucous membranes Teeth and gingiva: dentition normal and poor dentition (Left middle to molar lo wer) Throat: posterior oropharynx normal, uvula midline and no uvular edema Eyes: General: appearance normal, both eyes and all related structures Alignment and Position: alignment normal Neck: Neck: normal visual inspection, full ROM, no lymphadenopathy and no meningeal signs Chest: Chest palpation & inspection: normal inspection of the chest Resp: Effort & Inspection: normal respiratory effort and able to speak in complete sentences Auscultation: clear to auscultation bilaterally, no crackles, no rales, no rhonchi and no wheezes Cardio: Rate: regular rate Skin: General skin exam: normal color and no rashes or lesions noted Neuro: General: patient oriented x3, gait normal, moves all extremities and no meningeal signs Cognition (Neuro): normal cognition Speech: normal speech Gait exam (Neuro): Normal gait present Extrem: General: normal to inspection, full ROM, capillary refill normal and normal gait Psych: Appearance: grossly normal and well kempt Mental Status: mental status grossly normal Speech and movement: Normal speech and movement present and Clear speech present Affect: normal affect Attitude: cooperative Course Course Level of Care: Express Care Visit Vital Signs Vital signs: Vital Signs Temperature 98.5 F 04/23/25 18:30 Pulse Rate 80 04/23/25 18:30 Respiratory Rate 20 04/23/25 18:30 Blood Pressure 111/62 04/23/25 18:30 Pulse Oximetry 100 04/23/25 18:30 Oxygen Delivery Room Air 04/23/25 18:30 Temperature 98.5 F 04/23/25 18:30 Pulse Rate 80 04/23/25 18:30 Respiratory Rate 20 04/23/25 18:30 Blood Pressure 111/62 04/23/25 18:30 Pulse Oximetry 100 04/23/25 18:30 Oxygen Delivery Room Air 04/23/25 18:30 Reviewed MDM - Dental/Oral MDM Narrative Medical decision making narrative: Patient sitting in exam. Patient is nontoxic stable. Patient presents concerns of a continue dental infection. Will prescribe clindamycin. Patient reports appointment with dental provider. Discharge instructions reviewed with patient, as well as provided in writing per nursing staff. The instructions also include specific and strict return/GO TO THE ER as well as f/u information. All questions have been answered, and the patient deny any further questions with discharge and discharge plan. Some parts of this dictation were generated by voice recognition software and may contain typographical and/or grammatical inaccuracies. Differential Diagnosis Differential diagnosis: Likely gingival abscess, dental caries, toothache and dental abscess Critical Care Time Critical Care Time Critical Care Time: No Discharge Plan Discharge Clinical Impression: Dental caries, Toothache Patient Disposition: Home Condition: Stable Instructions: Antibiotic Form, Toothache (ED) Additional Instructions: Finish the entire course of antibiotics & use the mouthwash. After every time you eat be sure to use salt water rinses. Apply ice to face to help with pain. Take Tylenol alternating with Motrin as needed for pain. You can alternate every 4 hours You need to follow-up with a dental provider as soon as possible for further evaluation and treatment. A list of dental providers has been given to you Follow up with a Primary Care Provider (PCP) about medical needs. A PCP can help keep you healthy by preventive medicine and screening. Go to the ER for New or worsening symptoms. Patient Language: Divehi Prescriptions: New clindamycin HCl [Cleocin HCl] 300 mg capsule 300 mg PO TID 7 Days Qty: 21 0RF No Action clonazepam 0.5 mg tablet sertraline 100 mg tablet dextroamphetamine-amphetamine 20 mg capsule,extended release 24hr PO trazodone 100 mg tablet albuterol sulfate 90 mcg/actuation HFA aerosol inhaler INHALATION buspirone 15 mg tablet Follow-up/Referrals: Jessie,MD Brandt [Primary Care Provider, Unknown] - 1 Week Stand Alone Forms: Work/School Release IP Time of Disposition: 19:01
== END 2025-04-23 19:05 | disposition home or self-care (01) ==
PROVIDERS: Emergency Provider Nurse Practitioner; PCP Family Medicine
DX: K02.9 Dental caries, unspecified (principal); F41.9 Anxiety disorder, unspecified; F32.A Depression, unspecified
CPT/HCPCS: 99213; G0463

== ENCOUNTER 2025-05-18 10:19 | Emergency (ER) | payer OTHER, SELFPAY ==
--- NOTE | 2025-05-18 10:29 | ED_ITS ---
HPI - General Adult General Chief complaint: Anxiety Stated complaint: Anxiety/Panic Attacks Time Seen by Provider: 05/18/25 10:44 Source: patient, RN notes reviewed and old records reviewed Mode of arrival: ambulatory Limitations: no limitations History of Present Illness HPI narrative: 34-year-old female presents to the [facility] with concerns for having a panic attack. History of anxiety. Anxiety medications include BuSpar, clonazepam and Zoloft. patient states that she has been having issues at work, was due to have a meeting when she started having her panic attack. Took clonazepam it 8am and at 9:30 a.m.. On arrival patient was having a panic attack, RN spoke with her, calmed her down, symptoms resolved after speaking with RN. Onset (ago): hour(s) Related Data Home Medications ?Medication ?Instructions ?Recorded ?Confirmed ?Last Taken ?Type albuterol sulfate 90 mcg/actuation inhalation 12/02/24 Unknown History aerosol inhaler buspirone 15 mg tablet mg 12/02/24 Unknown History clonazepam 0.5 mg tablet mg 12/02/24 Unknown History dextroamphetamine-amphetamine ER PO 12/02/24 Unknown History 20 mg 24hr capsule,extend release sertraline 100 mg tablet mg 12/02/24 Unknown History trazodone 100 mg tablet mg 12/02/24 Unknown History ketorolac 10 mg tablet mg 05/18/25 Unknown History lidocaine 5 % topical patch patch 05/18/25 Unknown Hi story Allergies Allergy/AdvReac Type Severity Reaction Status Date / Time Sulfa (Sulfonamide Allergy Intermediate Rash Verified 05/18/25 11:57 Antibiotics) tramadol Allergy Intermediate Rash Verified 05/18/25 11:57 Review of Systems Review of Systems: All systems reviewed & are unremarkable except as noted in HPI and below Constitutional: Constitutional: Reports no additional constitutional complaints Cardiovascular: Cardiovascular: Reports dyspnea Respiratory: Respiratory: Reports no additional respiratory complaints, Denies chest congestion, Denies cough and Denies dyspnea Musculoskeletal: Musculoskeletal: Reports no additional musculoskeletal complaints Integumentary/Breasts: Skin/Breast: Reports system reviewed and no additional complaints, except as docu Psychiatric: Psychiatric: Reports as per HPI, Reports anxiety, Reports panic attacks, Denies homicidal ideation and Denies suicidal ideation PMFSH Past Medical History Medical History Depression Anxiety Surgical History Surgical History No pertinent past surgical history Family History Family History Mother Family history non-contributory Social History Social History Substance use type: prescription drug Living arrangements: with family Gender identity (if verbalized by the patient): Female Spiritual care concerns: No Comments At the time of my signature, I reviewed and agree with the nursing past medical, surgical, social, and family history. There is no relevant family history pertinent to the patient complaint. Exam Const: General: cooperative, healthy appearing, comfortable, no acute distress, well developed, alert and well nourished Nutritional Appearance: well nourished Orientation/consciousness: patient oriented x3 Limitations: no limitations HENMT: Head: normal to inspection Mouth: Yes Normal oral and palatal mucosa present, Yes lip normal, Yes tongue normal and Yes moist mucous membranes Eyes: General: appearance normal, both eyes and all related structures Alignment and Position: alignment normal Neck: Neck: normal visual inspection, full ROM, no lymphadenopathy and no meningeal signs Chest: Chest palpation & inspection: normal inspection of the chest Resp: Effort & Inspection: normal respiratory effort and able to speak in complete sentences Auscultation: clear to auscultation bilaterally, no crackles, no rales, no rhonchi and no wheezes Cardio: Rate: regular rate Skin: General skin exam: normal color and no rashes or lesions noted Neuro: General: patient oriented x3, gait normal, moves all extremities and no meningeal signs Cognition (Neuro): normal cognition Speech: normal speech Gait exam (Neuro): Normal gait present Extrem: General: normal to inspection, full ROM, capillary refill normal and normal gait Psych: Appearance: grossly normal and well kempt Mental Status: mental status grossly normal Speech and movement: Normal speech and movement present and Clear speech present Affect: normal affect Attitude: cooperative Course Course Level of Care: Express Care Visit Vital Signs Vital signs: Vital Signs Temperature 97.9 F 05/18/25 11:54 Pulse Rate 81 05/18/25 11:54 Respiratory Rate 14 05/18/25 11:54 Blood Pressure 122/70 10/28/25 11:54 Pulse Oximetry 100 05/18/25 11:54 Oxygen Delivery Room Air 05/18/25 11:54 Temperature 97.9 F 05/18/25 11:54 Pulse Rate 81 05/18/25 11:54 Respiratory Rate 14 05/18/25 11:54 Blood Pressure 122/70 05/18/25 11:54 Pulse Oximetry 100 05/18/25 11:54 Oxygen Delivery Room Air 05/18/25 11:54 Reviewed Medical Decision Making MDM Narrative Medical decision making narrative: Patient arrived extremely anxious, complaining of numbness and tingling in extremities. She was able to calm just a few minutes, conversation with RN. Patient verbalizes that she is feeling better. Patient with a very long history of anxiety. States that she has had some issues at work and was planning to talk with management when her anxiety/ panic attack got worse. Patient in no acute distress Discharge instructions reviewed with patient, as well as provided in writing pe r nursing staff. The instructions also include specific and strict return/GO TO THE ER as well as f/u information. All questions have been answered, and the patient deny any further questions with discharge and discharge plan. Some parts of this dictation were generated by voice recognition software and may contain typographical and/or grammatical inaccuracies. Differential Diagnosis Differential Diagnosis: anxiety, panic attack Medical Records Medical records reviewed: Yes I reviewed the external patient's medical records. Vital Signs Vital Signs: Vital Signs Temperature 97.9 F 05/18/25 11:54 Pulse Rate 81 05/18/25 11:54 Respiratory Rate 14 05/18/25 11:54 Blood Pressure 122/70 05/18/25 11:54 Pulse Oximetry 100 05/18/25 11:54 Oxygen Delivery Room Air 05/18/25 11:54 Temperature 97.9 F 05/18/25 11:54 Pulse Rate 81 05/18/25 11:54 Respiratory Rate 14 05/18/25 11:54 Blood Pressure 122/70 05/18/25 11:54 Pulse Oximetry 100 05/18/25 11:54 Oxygen Delivery Room Air 05/18/25 11:54 Reviewed Lab Data Lab results reviewed: Yes I reviewed the patient's lab results. Labs: Reviewed Critical Care Time Critical Care Time Critical Care Time: No Discharge Plan Discharge Clinical Impression: Anxiety Patient Disposition: Home Condition: Stable Instructions: Anxiety (ED), Panic Attack (ED) Additional Instructions: Follow-up with primary care provider Take medications as prescribed New or worsening symptoms go directly to the emergency room Patient Language: Tajik Prescriptions: No Action clonazepam 0.5 mg tablet sertraline 100 mg tablet dextroamphetamine-amphetamine 20 mg capsule,extended release 24hr PO trazodone 100 mg tablet albuterol sulfate 90 mcg/actuation HFA aerosol inhaler INHALATION buspirone 15 mg tablet ketorolac 10 mg tablet lidocaine 5 % adhesive patch,medicated Follow-up/Referrals: Jessie,MD Brandt [Primary Care Provider, Unknown] - 1 Week Stand Alone Forms: Work/School Release IP Time of Disposition: 11:09
[2025-05-18 11:54] VITALS: BP 122/70; PULSE 81; RESP 14; TEMP 36.6; O2SAT 100
== END 2025-05-18 11:28 | disposition home or self-care (01) ==
PROVIDERS: Emergency Provider Nurse Practitioner; PCP Family Medicine
DX: F41.9 Anxiety disorder, unspecified (principal); F32.A Depression, unspecified
CPT/HCPCS: 99211; G0463